=== PATIENT | male | born 1995 | race Caucasian/White ===

== ENCOUNTER 2024-08-09 18:22 | Emergency (ER) | payer BC, SELFPAY ==
[2024-08-09] VITALS (14 sets, daily range): BP systolic 109–122; BP diastolic 60–82; PULSE 77–90; TEMP 36.7; O2SAT 95–99; BMI 28.4
--- NOTE | 2024-08-09 18:36 | ECG_ITS ---
The [facility] Test Date: 2024-08-09 Pat Name: GUS LOVE Department: Room: - Gender: Male Hostess Host: : 1995 Requested By: [id number] Order Number: [id number] Reading MD: SIMONE DESAI Measurements Intervals [place] Rate: 77 P: 44 MT: 146 QRS: -4 QRSD: 94 T: 13 QT: 358 QTc: 389 Interpretive Statements 1100 Sinus rhythm 9110 normal ECG Compared to ECG 10/20/2020 17:15:01 No significant changes Electronically Signed On 08-11-2024 7:40:55 EST by SIMONE DESAI
--- NOTE | 2024-08-09 19:05 | XR_ITS ---
[address] [address] Patient Name: GUS LOVE MRN: [id number] date: 1995 Sex: M Assigned Patient Location: ER Current Patient Location: ED.MAIN Accession/Order Number: [id number] Exam Date: 08/09/2024 19:20 Report Date: 08/09/2024 20:14 At the request of: KELLY GHOSH Procedure: XR chest 1V Exam: Radiographs: XR chest 1V Reason for exam: Chest pain Comparison: Chest x-ray dated 10/20/2020 XR/XR chest 1V IMPRESSION: Unremarkable chest x-ray. Electronically authenticated by: MEGHA WALTON Date: 08/09/2024 20:14
--- NOTE | 2024-08-09 19:07 | ED_ITS ---
HPI - Chest Pain General Chief Complaint: Chest Pain Stated Complaint: CHEST PAIN Time Seen by Provider: 08/09/24 18:26 Source: patient Mode of arrival: walk-in Limitations: no limitations History of Present Illness HPI narrative: Patient is a 28-year-old male who presents to the emergency department for a 1 week history of pain in the epigastrium and across the anterior chest. He states he was diagnosed with GERD, he had previous endoscopy for this and was told he had an inverted hernia in his stomach. He states he was placed on Pepcid. He stopped that medication about 6 months ago. He states in the last 2 weeks he has had some return of symptoms and in the last several days it has gotten much worse. He has not had any nausea or vomiting. He denies fevers, chills, upper respiratory symptoms. No difficulty breathing. He came to the emergency department because he states he was concerned about having pain in his chest. He did resume his Pepcid over the last several days and states he has had some improvement with the medication. Related Data Previous Rx's ?Medication ?Instructions ?Recorded ondansetron 4 mg disintegrating 4 mg PO Q6H PRN nausea and 08/09/24 tablet vomiting #12 tabs sucralfate 1 gram tablet (Carafate) 1 g PO Q6H PRN abdominal pain #12 08/09/24 tabs Allergies Allergy/AdvReac Type Severity Reaction Status Date / Time No Known Drug Allergies Allergy Verified 08/09/24 18:31 Review of Systems ROS Constitutional Denies: fever or chills Ears, nose, mouth, and throat Denies: throat pain or nasal congestion Cardiovascular Reports: chest pain Respiratory Denies: shortness of breath or cough Gastrointestinal Reports: abdominal pain; Denies: nausea, vomiting or diarrhea Musculoskeletal Denies: back pain Integumentary/Breast Denies: rash Neurological Denies: numbness in extremities or weakness in extremities Hematologic/Lymphatic Denies: easy bruising or easy bleeding PFSH PFSH Social History Little interest or pleasure in doing things: not at all Feeling down, depressed, or hopeless: not at all Exam Narrative Exam Narrative: Gen.: Awake, alert, in no distress Head: Normocephalic, atraumatic ENT: Moist mucous membranes Respiratory: No respiratory distress, lungs clear bilaterally Cardio: Regular rate and rhythm Gastrointestinal: Abdomen is soft, nondistended and nontender to palpation Extremities: Moves extremities equally Psych: Normal mood and affect Neuro: No focal neuro deficit Skin: Warm, dry, intact Constitutional Vital Signs, click to edit/add: Last Vital Signs Temp 98.0 F 08/09/24 18:31 Pulse 83 08/09/24 19:10 Resp 16 08/09/24 19:15 BP 109/60 08/09/24 18:33 Pulse Ox 96 08/09/24 19:10 O2 Del Method Room Air 08/09/24 18:31 Course Vital Signs Vital signs: Vital Signs Temperature 98.0 F 08/09/24 18:31 Pulse Rate 85 08/09/24 18:31 Respiratory Rate 18 08/09/24 18:31 Blood Pressure 109/60 08/09/24 18:31 Pulse Oximetry 96 08/09/24 18:31 Oxygen Delivery Method Room Air 08/09/24 18:31 Temperature 98.0 F 08/09/24 18:31 Pulse Rate 83 08/09/24 19:10 Respiratory Rate 16 08/09/24 19:15 Blood Pressure 109/60 08/09/24 18:33 Pulse Oximetry 96 08/09/24 19:10 Oxygen Delivery Method Room Air 08/09/24 18:31 MDM - Chest Pain MDM Narrative Medical decision making narrative: Patient medicated with a GI cocktail, symptoms are consistent with esophagitis/gastritis. EKG, lab studies are unremarkable. AST and ALT are minimally elevated although bilirubin is normal and the patient has no focal tenderness to the right upper quadrant. Abdomen is soft and benign. Reevaluated by attending physician prior to discharge. He has Pepcid at home and will be given Carafate, Zofran as needed. Follow-up with PCP and return to the ER if symptoms change or worsen SHARED APC VISIT, PHYSICIAN ATTESTATION: [id number] I performed a substantive part of the MDM during the patient?s E/M visit. I personally evaluated and examined the patient. I personally made or approved the documented management plan and acknowledge its risk of complications. . Medical Records Data Attestation: I reviewed the patient's medical records. Lab Data Attestation: I reviewed the patient's lab results. Labs: Lab Results 08/09/24 Range/Units 18:45 WBC 7.3 (4.0-11.0) 10^3/uL RBC 5.39 (4.70-6.10) 10^6/uL Hgb 15.4 (14.0-18.0) g/dL Hct 46.2 (42.0-54.0) % MCV 85.7 (80.0-94.0) fL MCH 28.6 (25.9-34.0) pg MCHC 33.3 (29.9-35.2) g/dL RDW 12.4 (11.0-15.0) % Plt Count 237 (150-450) 10^3/uL MPV 10.7 (9.5-13.5) fL Neut % (Auto) 58.4 (43.0-75.0) % Lymph % (Auto) 31.9 (20.5-60.0) % [place] % (Auto) 7.9 (1.7-12.0) % Eos % (Auto) 1.0 (0.9-7.0) % Baso % (Auto) 0.5 (0.2-2.0) % Neut # (Auto) 4.3 (1.4-6.5) 10^3/uL Lymph # (Auto) 2.3 (1.2-3.8) 10^3/uL [place] # (Auto) 0.6 (0.3-0.8) 10^3/uL Eos # (Auto) 0.1 (0.0-0.7) 10^3/uL Baso # (Auto) 0.0 (0.0-0.1) 10^3/uL Abs Immat Gran (auto) 0.02 (0.00-0.03) 10^3/uL Imm/Tot Granulo (auto) 0.3 (0.0-0.5) % PT 10.5 (9.0-11.6) sec INR 0.99 Sodium 139 (136-145) mmol/L Potassium 3.7 (3.5-5.1) mmol/L Chloride 104 (98-107) mmol/L Carbon Dioxide 26.2 (21.0-32.0) mmol/L Anion Gap 12.5 BUN 15.0 (7.0-18.0) mg/dL Creatinine 1.48 H (0.70-1.30) mg/dL Est GFR ( Amer) >60 (>=60 mL/min/1.73m^2) Est GFR (Non-Af Amer) 57 L (>=60 mL/min/1.73m^2) BUN/Creatinine Ratio 10.1 Glucose 96 (74-106) mg/dL Calcium 8.8 (8.5-10.1) mg/dL Total Bilirubin 0.7 (0.2-1.0) mg/dL AST 43 H (15-37) U/L ALT 111 H (16-63) U/L Alkaline Phosphatase 82 (46-116) U/L Troponin I High Sens <4.0 L (4.0-76.1) pg/mL NT-Pro-B Natriuret Pep 6.0 (<=450.0) pg/mL Total Protein 6.8 (6.4-8.2) g/dL Albumin 3.8 (3.4-5.0) g/dL Globulin 3.0 g/dL Albumin/Globulin Ratio 1.3 Lipase 55.0 (16.0-77.0) U/L Imaging Data Chest x-ray: Attestation: I have reviewed the pertinent imaging results. ECG Data Attestation: I personally reviewed and interpreted this ECG as follows: (Normal sinus rhythm at a rate of 77, no acute ST elevation or ectopy. EKG reviewed by attending physician) Discharge Plan Discharge Chief Complaint: Chest Pain Clinical Impression: Chest pain, Esophagitis, acute Patient Disposition: Home, Self-Care Time of Disposition Decision: 19:57 Condition: Good Prescriptions / Home Meds: New sucralfate [Carafate] 1 gram tablet 1 g PO Q6H PRN (Reason: abdominal pain) Qty: 12 0RF ondansetron 4 mg tablet,disintegrating 4 mg PO Q6H PRN (Reason: nausea and vomiting) Qty: 12 0RF Print Language: Swedish Instructions: Noncardiac Chest Pain (ED), Esophagitis (ED) Referrals: Physician,Non-Staff, [Physician] - 1 week
[2024-08-09 19:13] LABS: Basophils Percent Auto 0.5 % (0.2-2.0); Eosinophils Absolute Auto 0.1 10^3/uL (0.0-0.7); Hematocrit 46.2 % (42.0-54.0); Hemoglobin 15.4 g/dL (14.0-18.0); Immature Granulocytes Abs Auto 0.02 10^3/uL (0.00-0.03); Immature Granulocytes Pct Auto 0.3 % (0.0-0.5); Lymphocytes Absolute Auto 2.3 10^3/uL (1.2-3.8); Lymphocytes Percent Auto 31.9 % (20.5-60.0); Mean Corpuscular HGB Conc 33.3 g/dL (29.9-35.2); Mean Corpuscular Hemoglobin 28.6 pg (25.9-34.0); Mean Corpuscular Volume 85.7 fL (80.0-94.0); Mean Platelet Volume 10.7 fL (9.5-13.5); Monocytes Absolute Auto 0.6 10^3/uL (0.3-0.8); Monocytes Percent Auto 7.9 % (1.7-12.0); Neutrophils Absolute Auto 4.3 10^3/uL (1.4-6.5); Neutrophils Percent Auto 58.4 % (43.0-75.0); Platelet Count 237 10^3/uL (150-450); Red Blood Count 5.39 10^6/uL (4.70-6.10); Red Cell Distribution Width 12.4 % (11.0-15.0); White Blood Count 7.3 10^3/uL (4.0-11.0)
[2024-08-09 19:19] LABS: INR 0.99; Prothrombin Time 10.5 sec (9.0-11.6)
[2024-08-09 19:26] LABS: Alanine Aminotransferase 111 U/L (16-63); Albumin Globulin Ratio 1.3; Albumin Level 3.8 g/dL (3.4-5.0); Alkaline Phosphatase 82 U/L (46-116); Anion Gap 12.5; Aspartate Amino Transferase 43 U/L (15-37); Bilirubin Total 0.7 mg/dL (0.2-1.0); Carbon Dioxide 26.2 mmol/L (21.0-32.0); Chloride 104 mmol/L (98-107); Estimated GFR (African America >60 (>=60 mL/min/1.73m^2); Glucose 96 mg/dL (74-106); Potassium 3.7 mmol/L (3.5-5.1); Sodium 139 mmol/L (136-145); Total Protein 6.8 g/dL (6.4-8.2)
[2024-08-09] MEDS: lidocaine HCL 15 ML, MAG HYDROX/ALUMINUM HYD/SIMETH 30 ML, HYOSCYAMINE SULFATE 0.25 MG PO (19:31)
[2024-08-09 19:33] LABS: Troponin I High Sensitivity <4.0 pg/mL (4.0-76.1)
[2024-08-09 19:48] LABS: Calcium 8.8 mg/dL (8.5-10.1)
[2024-08-09 19:51] LABS: BUN Creatinine Ratio 10.1; Estimated GFR (Non-African Ame 57 (>=60 mL/min/1.73m^2)
== END 2024-08-09 20:22 | disposition home or self-care (01) ==
PROVIDERS: Physician Assistant; Emergency Provider Emergency Medicine; PCP Nurse Practitioner Family
DX: R07.9 Chest pain, unspecified (principal); K21.00 Gastro-esophageal reflux disease with esophagitis, without bleeding
CPT/HCPCS: 36415; 71045; 80053; 83690; 83880; 84484; 85025; 85610; 93005; 99285

== ENCOUNTER 2025-05-01 16:19 | Emergency (ER) | payer BC, SELFPAY ==
[2025-05-01 16:30] VITALS: BP 144/95; PULSE 87; TEMP 37; O2SAT 99; BMI 33.9
--- OUTSIDE RECORDS SUMMARY | 2025-05-01 17:02 | XMS_ITS | CCD ---
Author Organization [facility] CliniSypr Care Team Providers Care Pomology Teacher Name Role Phone Bere Majano Unavailable Blessing APPRENTICE/LINEMAN - Estelle SALES Primary Care Provider ESTELLE FUNK Referring Unavailable ESTELLE FUNK Primary Care Unavailable ESTELLE FUNK M Referring Unavailable ESTELLE FUNK M Primary Care Unavailable Cristin Adame Unavailable ELISEO, DR MILLER Admitting Unavailable ELISEO, DR MILLER Attending Unavailable [facility], DR BRANDT Primary Care Unavailable ELISEO, DR MILLER Consulting Unavailable NO FAMILY, PHYSICIAN Primary Care Provider Unava ilable MARISOL Garcia Attending Provider Fabiana Garcia Attending Unavailable Fabiana Garcia Admitting Unavailable NO FAMILY, PHYSICIAN Primary Care Unavailable Xiomara APPRENTICE/LINEMAN-MÓNICA, Olaf Cote Primary Care Provider CASSIDY ROGERS Referring Unavailable XIOMARA, OLAF L Primary Care Unavailable XIOMARA, OLAF L Referring Unavailable XIOMARA, OLAF L Primary Care Unavailable XIOMARA, OLAF L Primary Care Unavailable XIOMARA, OLAF L Referring Unavailable XIOMARA, OLAF L Primary Care Unavailable Blessing APPRENTICE/LINEMAN - Estelle SALES Primary Care Provider CANELO ALVARADO Referring Unavailable ESTELLE FUNK Primary Care Unavailable Xiomara APPRENTICE/LINEMAN-ASSISTANT PROFESSOR OF COMMUNICATIONOlaf Primary Care Provider XIOMARA, OLAF L Attending Unavailable XIOMARA, OLAF L Referring Unavailable XIOMARA, OLAF L Primary Care Unavailable XIOMARA, OLAF L Attending Unavailable XIOMARA, OLAF L Referring Unavailable XIOMARA, OLAF L Primary Care Unavailable XIOMARA, OLAF L Attending Unavailable XIOMARA, OLAF L Referring Unavailable XIOMARA, OLAF L Primary Care Unavailable Medications Current Medications Medication Drug Class(es) Dates Sig (Normalized) Sig (Original) dextromethorphan hydrobromide 1.5 mg/ml / pyrilamine maleate 1.5 mg/ml oral solution (1 source) Uncompetitive I-ocgkqs-B-asparta te Receptor Antagonist, Sigma-1 Agonist Start: 10-25-2021 [place] DM 7.5-7.5 MG/5ML 10 ml Orally every 6-8 hours as needed for 8 days Oct, Active famotidine 20 mg oral tablet (5 sources) Histamine-2 Receptor Antagonist Start: 07-21-2023 End: 09-27-2024 take 1 tablet by mouth in the morning, then take 1 tablet by mouth at bedtime famotidine (PEPCID) 20 mg tablet Take 1 tablet (20 mg total) by mouth in the morning and 1 tablet (20 mg total) before bedtime. 60 tablet 1 07/21/2023 09/27/2024 Discontinued (Therapy completed) nicotine 4 mg chewing gum (2 sources) Cholinergic Nicotinic Agonist Start: 10-21-2024 nicotine polacrilex (NICORETTE) 4 MG gum Chew 1 each (4 mg total) as directed as needed for smoking cessation. 100 each 1 10/21/2024 Active omeprazole 20 mg delayed release oral capsule (7 sources) Proton Pump Inhibitor Start: 08-16-2024 End: 09-10-2024 take 2 capsules by mouth in the morning omeprazole (PriLOSEC) 20 mg capsule TAKE 2 CAPSULES (40 MG) BY MOUTH IN THE MORNING 180 capsule 1 09/10/2024 Active ondansetron 4 mg disintegrating oral tablet (4 sources) Serotonin-3 Receptor Antagonist Start: 08-09-2024 ondansetron ODT (ZOFRAN ODT) 4 mg disintegrating tablet 08/09/2024 Active Start: 07-20-2022 take 1 tablet by kamran th three times daily as needed for nausea Zofran 4 MG 1 tablet Orally 3 times a day prn prn nausea Jul, Active sucralfate 1000 mg oral tablet (3 sources) Aluminum Complex Start: 08-09-2024 End: 09-27-2024 sucralfate (CARAFATE) 1 gram tablet 08/09/2024 09/27/2024 Discontinued (Therapy completed) Completed/Discontinued Medications Medication Drug Class(es) Dates Sig (Normalized) Sig (Original) gadoteridol (PROHANCE) injection 20 mL (1 source) Start: 10-08-2024 End: 10-08-2024 take 1 dose intravenously once 20 mL, IntraVENous, IMG ONCE PRN, 1 dose, Starting on Mon10/08/24 at 0950, Until Mon10/08/24 at 0951, Other Problems Active Problems Problem Classification Problem Date Documented Date Episodic/Chronic Biliary tract disease (2 sources) Cholangiectasis; Translations: [Other specified diseases of biliary tract] Onset: 10-08-2024 10-08-2024 Chronic Blindness and vision defects (3 sources) Other visual disturbances; Translations: [OTHER VISUAL DISTURBANCES] Onset: 08-13-2022 Episodic Esophageal disorders (13 sources) Gastroesophageal reflux disease; Translations: [Gastro-esophageal reflux disease without esophagitis] Onset: 05-26-2023 08-16-2024 Chronic Fracture of lower limb (1 source) Nondisplaced avulsion fracture (chip fracture) of right talus, initial encounter for closed fracture; Translations: [Nondisplaced avulsion fracture (chip fracture) of right talus, initial encounter for closed fracture] Onset: 08-25-2024 Episodic Headache; including migraine (1 source) Migraine, unspecified, not intractable, without status migrainosus; Translations: [MIGRAINE UNS NOT INTRACT W/O SM] Onset: 08-16-2022 Chronic Immunizations and screening for infectious disease (1 source) Contact with and (suspected) exposure to other viral communicable diseases Episodic Nausea and vomiting (1 source) Nausea with vomiting, unspecified Episodic Other connective tissue disease (1 source) Hand pain; Translations: [Pain in left hand] 01-15-2024 Episodic Other connective tissue disease (1 source) Pain in left hand; Translations: [Pain in limb] 01-15-2024 Episodic Other injuries and conditions due to external causes (2 sources) Injury of left hand; Translations: [Unspecified injury of left wrist, hand and finger(s), initial encounter] 01-15-2024 Episodic Other injuries and conditions due to external causes (1 source) Unspecified injury of left wrist, hand and finger(s), initial encounter; Translations: [Unspecified injury of left wrist, hand and finger(s), initial encounter] Onset: 01-15-2024 Episodic Other non-traumatic joint disorders (4 sources) Pain in left knee; Translations: [Pain in joint, lower leg] Onset: 05-03-2022 Episodic Other nutritional; endocrine; and metabolic disorders (2 sources) Obesity caused by energy imbalance; Translations: [Class 1 obesity due to excess calories without serious comorbidity with body mass index (BMI) of 33.0 to 33.9 in adult] 09-27-2024 Chronic Other upper respiratory disease (1 source) Feeling of lump in throat; Translations: [Globus sensation] 09-27-2024 Episodic Residual codes; unclassified (1 source) Pain, unspecified; Translations: [Pain, unspecified] Onset: 08-21-2024 Episodic Sprains and strains (4 sources) Sprain of medial collateral ligament of knee; Translations: [Sprain of medial collateral ligament of left knee, initial encounter] Onset: 05-03-2022 Episodic Substance-related disorders (11 sources) Nicotine dependence; Translations: [Nicotine dependence, chewing tobacco, uncomplicated] Onset: 05-26-2023 05-26-2023 Chronic Unclassified (1 source) Ankle Injury Onset: 08-25-2024 Unclassified (1 source) Right Ankle Injury Onset: 08-25-2024 Unclassified (1 source) Foreign body sensation, throat; Translations: [Foreign body sensation, throat] Onset: 09-27-2024 Unclassified (1 source) Wellness Onset: 04-25-2025 Unclassified (1 source) GI Problem Onset: 08-16-2024 Past or Other Problems Problem Classification Problem Date Documented Da te Episodic/Chronic Abdominal hernia (11 sources) Sliding hiatus hernia ; Translations: [Diaphragmatic hernia without obstruction or gangrene] Onset: 07-21-2023 07-21-2023 Episodic Fever of unknown origin (1 source) Fever, unspecified Onset: 10-25-2021 Resolved: 10-25-2021 Episodic Influenza (1 source) Influenza due to other identified influenza virus with other respiratory manifestations Onset: 10-25-2021 Resolved: 10-25-2021 Episodic Mood disorders (8 sources) Mood disorders Onset: 09-29-2023 Resolved: 04-25-2025 09-29-2023 Other gastrointestinal disorders (8 sources) Oropharyngeal dysphagia; Translations: [Dysphagia, oropharyngeal phase] Onset: 06-25-2023 07-21-2023 Episodic Other screening for suspected conditions (not mental disorders or infectious disease) (9 sources) Abnormal liver function; Translations: [Abnormal results of liver function studies] Onset: 08-16-2024 08-16-2024 Episodic Other skin disorders (1 source) Skin tag; Translations: [Other hypertrophic disorders of the skin] 09-29-2023 Episodic Unclassified (1 source) Onset: 04-25-2025 04-25-2025 Results Test Name Value Interpretation Reference Range Facility [facility] 04-25-2025 Albumin [Mass/Vol] 4.5 g/dL Normal 3.2-5.3 [facility] Comment on above: Performed By: #### C MP #### [facility] ([facility]) [address] [place] [address] VIR ALP [Catalytic activity/Vol] 59 U/L Normal 39-130 [facility] Comment on above: Performed By: #### C MP #### [facility] ([facility]) [address] [place] [address] VIR ALT [Catalytic activity/Vol] 58 U/L High <=40 [facility] Comment on above: Performed By: #### C MP #### [facility] ([facility]) [address] [place] [address] VIR Anion gap [Moles/Vol] 10 mmol/L Normal 5-15 [facility] Comment on above: Performed By: #### C MP #### [facility] ([facility]) [address] [place] [address] VIR AST [Catalytic activity/Vol] 35 U/L Normal <=41 [facility] Comment on above: Performed By: #### C MP #### [facility] ([facility]) [address] [place] [address] VIR Bilirubin [Mass/Vol] 0.7 mg/dL Normal 0.3-1.2 [facility] Comment on above: Performed By: #### C MP #### [facility] ([facility]) [address] [place] [address] VIR Calcium [Mass/Vol] 9.0 mg/dL Normal 8.5-10.5 [facility] Comment on above: Performed By: #### C MP #### [facility] ([facility]) [address] [place] [address] VIR Chloride [Moles/Vol] 104 mmol/L Normal 98-109 [facility] Comment on above: Performed By: #### C MP #### [facility] ([facility]) [address] [place] [address] VIR CO2 [Moles/Vol] 24 mmol/L Normal 22-32 [facility] Comment on above: Performed By: #### C MP #### [facility] ([facility]) [address] [place] [address] VIR Creatinine [Mass/Vol] 1.06 mg/dL Normal 0.60-1.30 [facility] Comment on above: Result Comment: METH OD TRACEABLE TO IDMS STANDARD Performed By: #### C MP #### [facility] ([facility]) [address] [place] [address] VIR EGFR (CKD-EPI) NON-RACE DEPENDENT >^90 Normal >=60 [facility] Comment on above: Result Comment: Repo rted eGFR is based on the CKD-EPI 2020 equation that does not use a race coefficient. Performed By: #### C MP #### [facility] ([facility]) [address] [place] [address] VIR Glucose [Mass/Vol] 89 mg/dL Normal 65-99 [facility] Comment on above: Performed By: #### C MP #### [facility] ([facility]) [address] [place] [address] VIR Potassium [Moles/Vol] 4.2 mmol/L Normal 3.5-5.0 [facility] Comment on above: Performed By: #### C MP #### [facility] ([facility]) [address] [place] [address] VIR Protein [Mass/Vol] 6.8 g/dL Normal 6.0-8.0 [facility] Comment on above: Performed By: #### C MP #### [facility] ([facility]) [address] [place] [address] VIR Sodium [Moles/Vol] 138 mmol/L Normal 134-146 [facility] Comment on above: Performed By: #### C MP #### [facility] ([facility]) [address] [place] [address] VIR Urea nitrogen [Mass/Vol] 13 mg/dL Normal 5-23 [facility] Comment on above: Performed By: #### C MP #### [facility] ([facility]) [address] [place] [address] VIR LIPID PROFILEon 04-25-2025 Cholesterol [Mass/Vol] 149 mg/dL Low 150-200 [facility] Comment on above: Performed By: #### L IPR #### [facility] ([facility]) [address] [place] [address] VIR Cholesterol in HDL [Mass/Vol] 38 mg/dL Low >39 [facility] Comment on above: Result Comment: HDL <40 mg/dL - High Risk HDL > or = 40mg/dL- Desirable HDL >60 mg/dL - Negative Risk Performed By: #### L IPR #### [facility] ([facility]) [address] [place] [address] VIR Cholesterol in LDL [Mass/Vol] 91 mg/dL Normal <130 [facility] Comment on above: Result Comment: LDL <100 mg/dL - Desirable LDL >160 mg/dL - High Risk Performed By: #### L IPR #### [facility] ([facility]) [address] [place] [address] VIR CHOLESTEROL:HDL 3.9 Normal 1.0-5.0 [facility] Comment on above: Performed By: #### L IPR #### [facility] ([facility]) [address] [place] [address] VIR Triglyceride [Mass/Vol] 98 mg/dL Normal 27-150 [facility] Comment on above: Performed By: #### L IPR #### [facility] ([facility]) [address] [place] [address] VIR VERY LOW LIPOPROTEIN 20 mg/dL Normal 0-30 [facility] Comment on above: Performed By: #### L IPR #### [facility] ([facility]) [address] [place] [address] VIR MR Abdomen WO and W contrast Klarissa 10-08-2024 Unremarkable MRI/MRCP. [facility] EXAMINATION: MRI OF THE ABDOMEN WITH AND WITHOUT CONTRAST AND MRCP 10/08/2024 9:51 am TECHNIQUE: Multiplanar multisequence MRI of the abdomen was performed with and without the administration of intravenous contrast. After initial T2 axial and coronal images, thick slab, thin slab and 3D coronal MRCP sequences were obtained without the administration of intravenous contrast. MIP images are provided for review. COMPARISON: None HISTORY: ORDERING SYSTEM PROVIDED HISTORY: Dilation of common bile duct TECHNOLOGIST PROVIDED HISTORY: STAT Creatinine as needed:->No FINDINGS: LOWER CHEST: The visualized lung bases reveal no signal abnormality. LIVER: The liver is normal in morphology. No evidence for steatosis. No suspicious liver lesion identified. The hepatic veins and portal veins are appropriately opacified. GALLBLADDER/BILE DUCTS: Normal gallbladder. No intrahepatic nor extrahepatic biliary dilation. PANCREAS: No significant findings. SPLEEN: No significant findings. ADRENAL GLANDS: Normal. KIDNEYS: No significant findings. GI/BOWEL: The visualized bowel is normal in caliber. PERITONEUM/RETROPERI TONEUM: No abdominal lymphadenopathy. No free intraperitoneal fluid. VESSELS: The aorta is normal in caliber. The visceral branches are patent. The IVC is appropriately opacified. SOFT TISSUES/BONES: No suspicious signal abnormality identified. *Unless otherwise specified, incidental findings do not require dedicated imaging follow-up. [facility] Arnaud Reyes MD - 10/08/2024 EXAMINATION: MRI OF THE ABDOMEN WITH AND WITHOUT CONTRAST AND MRCP 10/08/2024 9:51 am TECHNIQUE: Multiplanar multisequence MRI of the abdomen was performed with and without the administration of intravenous contrast. After initial T2 axial and coronal images, thick slab, thin slab and 3D coronal MRCP sequences were obtained without the administration of intravenous contrast. MIP images are provided for review. COMPARISON: None HISTORY: ORDERING SYSTEM PROVIDED HISTORY: Dilation of common bile duct TECHNOLOGIST PROVIDED HISTORY: STAT Creatinine as needed:->No FINDINGS: LOWER CHEST: The visualized lung bases reveal no signal abnormality. LIVER: The liver is normal in morphology. No evidence for steatosis. No suspicious liver lesion identified. The hepatic veins and portal veins are appropriately opacified. GALLBLADDER/BILE DUCTS: Normal gallbladder. No intrahepatic nor extrahepatic biliary dilation. PANCREAS: No significant findings. SPLEEN: No significant findings. ADRENAL GLANDS: Normal. KIDNEYS: No significant findings. GI/BOWEL: The visualized bowel is normal in caliber. PERITONEUM/RETROPERI TONEUM: No abdominal lymphadenopathy. No free intraperitoneal fluid. VESSELS: The aorta is normal in caliber. The visceral branches are patent. The IVC is appropriately opacified. SOFT TISSUES/BONES: No suspicious signal abnormality identified. *Unless otherwise specified, incidental findings do not require dedicated imaging follow-up. IMPRESSION: Unremarkable MRI/MRCP. [facility] Radiology Study observation (narrative) [facility] MR Abdomen WO and W contrast IVOrdered By: Arnaud Reyes on 10-08-2024 [facility] Loc[facility]er Work Phone: MRI ABDOMEN W WO CONTRAST MR CPon 10-08-2024 MRI ABDOMEN W WO CONTRAST MRCP EXAMINATION: MRI OF THE ABDOMEN WITH AND WITHOUT CONTRAST AND MRCP 10/08/2024 9:51 am TECHNIQUE: Multiplanar multisequence MRI of the abdomen was performed with and without the administration of intravenous contrast. After initial T2 axial and coronal images, thick slab, thin slab and 3D coronal MRCP sequences were obtained without the administration of intravenous contrast. MIP images are provided for review. COMPARISON: None HISTORY: ORDERING SYSTEM PROVIDED HISTORY: Dilation of common bile duct TECHNOLOGIST PROVIDED HISTORY: STAT Creatinine as needed:->No FINDINGS: LOWER CHEST: The visualized lung bases reveal no signal abnormality. LIVER: The liver is normal in morphology. No evidence for steatosis. No suspicious liver lesion identified. The hepatic veins and portal veins are appropriately opacified. GALLBLADDER/BILE DUCTS: Normal gallbladder. No intrahepatic nor extrahepatic biliary dilation. PANCREAS: No significant findings. SPLEEN: No significant findings. ADRENAL GLANDS: Normal. KIDNEYS: No significant findings. GI/BOWEL: The visualized bowel is normal in caliber. PERITONEUM/RETROPERI TONEUM: No abdominal lymphadenopathy. No free intraperitoneal fluid. VESSELS: The aorta is normal in caliber. The visceral branches are patent. The IVC is appropriately opacified. SOFT TISSUES/BONES: No suspicious signal abnormality identified. *Unless otherwise specified, incidental findings do not require dedicated imaging follow-up. IMPRESSION: Unremarkable MRI/MRCP. Interpreted by: Arnaud Reyes MD Signed by: Aranud Reyes MD 10/08/24 Final result Normal [facility] Jaron 09-27-2024 Albumin [Mass/Vol] 4.6 g/dL Normal 3.2-5.3 [facility] Comment on above: Performed By: #### C GRECIA TSHR #### [facility] ([id number]) [address] [place] [address] ALP [Catalytic activity/Vol] 94 U/L Normal 39-130 [place] Comment on above: Performed By: #### Phil PAIGE TSHR #### [facility] ([id number]) [address], [address] [place] [address] ALT [Catalytic activity/Vol] 97 U/L High 0-40 [place] Comment on above: Performed By: #### Phil PAIGE TSHR #### [facility] ([id number]) [address], [address] [place] [address] Anion gap [Moles/Vol] 7 mmol/L Normal 5-15 [place] Comment on above: Performed By: #### C GRECIA TSHR #### [facility] ([id number]) [address] [place] [address] AST [Catalytic activity/Vol] 40 U/L Normal 0-41 [place] Comment on above: Performed By: #### Phil PAIGE TSHR #### [facility] ([id number]) [address], [address] [place] [address] Bilirubin [Mass/Vol] 0.4 mg/dL Normal 0.3-1.2 [place] Comment on above: Performed By: #### C GRECIA, TSHR #### [facility] ([id number]) [address] [address] [place] [address] Calcium [Mass/Vol] 9.5 mg/dL Normal 8.5-10.5 [facility] Comment on above: Performed By: #### C GRECIA TSHR #### [facility] ([id number]) [address] [address] [place] [address] Chloride [Moles/Vol] 108 mmol/L Normal 98-109 [place] Comment on above: Performed By: #### C GRECIA TSHR #### [facility] ([id number]) [address] [address] [place] [address] CO2 [Moles/Vol] 26 mmol/L Normal 22-32 [place] Comment on above: Performed By: #### C GRECIA TSHR #### [facility] ([id number]) [address] [address] [place] [address] Creatinine [Mass/Vol] 1.18 mg/dL Normal 0.60-1.30 [place] Comment on above: Result Comment: METH OD TRACEABLE TO IDMS STANDARD Performed By: #### C GRECIA, TSHR #### [facility] ([id number]) [address] [address] [place] [address] GFR/1.73 sq M.predicted among non-blacks MDRD (S/P/Bld) [Vol rate/Area] 87 mL/min/{1.73_m2} Normal >59 [facility] Comment on above: Result Comment: Reported eGFR is based on the CKD-EPI 2020 equation that does not use a race coefficient. Performed By: #### C MP, TSHR #### [facility] ([id number]) [address] [place] [address] Glucose [Mass/Vol] 98 mg/dL Normal 65-99 [facility] Comment on above: Performed By: #### C GRECIA TSHR #### [facility] ([id number]) [address] [place] [address] Potassium [Moles/Vol] 4.6 mmol/L Normal 3.5-5.0 [place] Comment on above: Performed By: #### C GRECIA TSHR #### [facility] ([id number]) [address] [place] [address] Protein [Mass/Vol] 6.6 g/dL Normal 6.0-8.0 [facility] Comment on above: Performed By: #### Phil PAIGE TSHR #### [facility] ([id number]) [address] [place] [address] Sodium [Moles/Vol] 141 mmol/L Normal 134-146 [facility] Comment on above: Performed By: #### C GRECIA TSHR #### [facility] ([id number]) [address] [place] [address] Urea nitrogen [Mass/Vol] 12 mg/dL Normal 5-23 [place] Comment on above: Performed By: #### Phil PAIGE TSHR #### [facility] ([id number]) [address] [place] [address] TSH WITH REFLEXon 09-27-2024 TSH 1.02 uIU/mL Normal 0.49-4.67 [facility] Comment on above: Performed By: #### Phil PAIGE TSHR #### [facility] ([id number]) [address] [place] [address] US ABDOMEN LMTDon 08-23-2024 US ABDOMEN LMTD US ABDOMEN LMTD US ABDOMEN LMTD HISTORY: Abnormal liver function test COMPARISON: None TECHNIQUE: Multiple real-time grayscale images were obtained in transverse and sagittal projections. Color Doppler was used. FINDINGS: Visualized portions of liver are homogenous in echotexture without demonstrated focal lesion. No intrahepatic biliary dilatation. The common bile duct is mildly prominent measuring 0.7 cm. Main portal vein is patent with appropriate direction of flow. No gallstones, gallbladder wall thickening, or pericholecystic fluid demonstrated. Technologist reports negative sonographic Rod's sign. Pancreas difficult to visualize secondary to overlying bowel gas. Provided images of the right kidney show no abnormalities. IMPRESSION: 1. Mildly prominent common bile duct measuring 7 mm. Consider correlation with labs, if abnormal ERCP, EUS or MRCP may be considered. 2. No acute cholecystitis. Approved by Pranay Rouse MD on 08/23/2024 8:00 AM I, Anupama Cantu MD have personally reviewed the image(s) and agree with and/or edited the report Finalized by Anupama Cantu MD on 08/23/2024 2:40 PM Normal [facility] XR ANKLE RT MIN 3 VWSon XR ANKLE RT MIN 3 VWS XR ANKLE RT MIN 3 VWS History: Pain. Exam/Technique: AP, lateral and oblique views of the ankle were obtained. Comparison: None is available. Findings: There is moderate soft tissue swelling at the lateral malleolus and posterior aspect of the ankle joint with no gross acute osseous injury or displaced fracture. There is no dislocation or subluxation are present. Ankle mortise is well preserved. IMPRESSION: Prominent soft tissue swelling with no displaced fracture or gross acute osseous injury. Finalized by Violeta Lombardo MD on 08/21/2024 1:38 PM Normal [facility] XR FOOT RT MIN 3 VWSon 08-21 XR FOOT RT MIN 3 VWS XR FOOT RT MIN 3 VWS XR FOOT RT MIN 3 VWS HISTORY: Pain. COMPARISON: none IMPRESSION: Probable tiny avulsion fracture about the lateral talar facet versus lateral margin of the calcaneus. Soft tissue swelling about the lateral malleolus. Ankle radiographs dictated separately. Finalized by Alex Jimenez MD on 08/21/2024 1:39 PM Normal [facility] XR hand LT min 3V*on 024 XR hand LT min 3V* [facility] [place] [address] [place] [id number] XRay Report Signed Patient: Abrahan Lozano MR#: [id number] : 1995 Acct:[id number] Age/Sex: 28 / M ADM Date: 01/15/24 Loc: XDUCLY Room: Type: [facility] Attending Dr: Fabiana Garcia APPRENTICE/LINEMAN Copies to: Fabiana Garcia APRN Ordering Provider: Fabiana Garcia APRN Date of Service: 01/15/24 XR/XR hand LT min 3V*: LEFT HAND POSSIBLE FOREIGN BODY 4 views LEFT hand plain film COMPARISON: None HISTORY: LEFT hand injury. Concern for retained metal. ACUTE FINDINGS: None DEGENERATIVE CHANGE: Unremarkable SOFT TISSUE FINDINGS: No radiodense foreign body. No subcutaneous air. JOINT EFFUSION: None POSTOP CHANGES: None BONY MINERALIZATION: Adequate XR/XR hand LT min 3V* IMPRESSION: No acute bony findings. No radiodense foreign body. Impression dictated by: Samuel Burton M.D.01/15/2024 5:06 PM Dictation Location: [place] [address] Transcribed By: [facility] 01/15/24 170 Dictated By: Samuel Burton DO 01/15/24 170 Signed By: 01/15/24 1706 Normal [facility] Comprehensive metabolic pane jaron 09-29-2023 Albumin [Mass/Vol] 4.4 g/dL 3.2 - 5.3 g/dL Pr [facility] ALP [Catalytic activity/Vol] 63 U/L 39 - 130 U/L [facility] ALT No additional P-5'-P [Catalytic activity/Vol] 54 U/L High 0 - 40 U/L [facility] Anion gap [Moles/Vol] 11 mmol/L 5 - 15 mmol/L [facility] AST [Catalytic activity/Vol] 29 U/L 0 - 41 U/L [facility] Bilirubin [Mass/Vol] 0.5 mg/dL 0.3 - 1.2 mg/dL [facility] Calcium [Mass/Vol] 9.5 mg/dL 8.5 - 10. 5 mg/dL [facility] Chloride [Moles/Vol] 104 mmol/L 98 - 109 mmol/L [facility] CO2 [Moles/Vol] 26 mmol/L 22 - 32 mmol/L [facility] Creatinine [Mass/Vol] 1.10 mg/dL 0.60 - 1.30 mg/dL [facility] Comment on above: METHOD TRACEABLE TO [facility] STANDARD eGFR (CKD-EPI)non-race dependent - PINF [facility] Comment on above: Reported eGFR is based on the CKD-EPI 2020 equation that does not use a race coefficient. Glucose [Mass/Vol] 91 mg/dL 65 - 99 mg/dL [facility] Interpretation and review of laboratory results Abnormal [facility] Potassium [Moles/Vol] 4.2 mmol/L 3.5 - 5.0 mmol/L [facility] Protein [Mass/Vol] 6.9 g/dL 6.0 - 8.0 g/dL Pr [facility] Sodium [Moles/Vol] 141 mmol/L 134 - 146 mmol/L [facility] Urea nitrogen [Mass/Vol] 13 mg/dL 5 - 23 mg/dL [facility] COVID/FLU RT-PCRon 2 SARS-CoV-2 (COVID-19) RNA RUDOLPH+probe Ql (Unsp spec) Negative [facility] Other COVID/FLU RT-PCR Negative [facility] [employer] Other XR KNEE LEFT (3 VIEWS)on XR KNEE LEFT (3 VIEWS) EXAMINATION: THREE XRAY VIEWS OF THE LEFT KNEE 05/03/2022 5:59 pm COMPARISON: None. HISTORY: ORDERING SYSTEM PROVIDED HISTORY: Pain of left knee after injury TECHNOLOGIST PROVIDED HISTORY: left knee sprain 04/24/22 date of injury hit left medial knee almost parellel to patella with metal u channel piece, no break in skin integrity , hard to walk, suspect medial collateral ligament injury rule out avulsion fx. FINDINGS: No evidence of acute fracture or dislocation. No focal osseous lesion. No evidence of joint effusion. No focal soft tissue abnormality. IMPRESSION: No acute abnormality of the knee. Interpreted by: Rafita Johnson DO Signed by: Rafita Johnson DO 05/04/22 Final result Normal [facility] No acute abnormality of the knee. [facility] EXAMINATION: THREE XRAY VIEWS OF THE LEFT KNEE 05/03/2022 5:59 pm COMPARISON: None. HISTORY: ORDERING SYSTEM PROVIDED HISTORY: Pain of left knee after injury TECHNOLOGIST PROVIDED HISTORY: left knee sprain 04/24/22 date of injury hit left medial knee almost parellel to patella with metal u channel piece, no break in skin integrity , hard to walk, suspect medial collateral ligament injury rule out avulsion fx. FINDINGS: No evidence of acute fracture or dislocation. No focal osseous lesion. No evidence of joint effusion. No focal soft tissue abnormality. [facility] Rafita Johnson DO - 05/04/2022 EXAMINATION: THREE XRAY VIEWS OF THE LEFT KNEE 05/03/2022 5:59 pm COMPARISON: None. HISTORY: ORDERING SYSTEM PROVIDED HISTORY: Pain of left knee after injury TECHNOLOGIST PROVIDED HISTORY: left knee sprain 04/24/22 date of injury hit left medial knee almost parellel to patella with metal u channel piece, no break in skin integrity , hard to walk, suspect medial collateral ligament injury rule out avulsion fx. FINDINGS: No evidence of acute fracture or dislocation. No focal osseous lesion. No evidence of joint effusion. No focal soft tissue abnormality. IMPRESSION: No acute abnormality of the knee. [employer] Phone: XR KNEE LEFT (3 VIEWS)Ordere d By: Rafita Johnson on 05-04-2022 [facility] [employer] staff Phone: XR KNEE LEFT (3 VIEWS)on Radiology Study observation (narrative) [employer] Phone: COVID Quick Testingon 2021 Result Negative [facility] Other Provider Orderson 10-11-2019 Provider Orders [id number] #[id number] [facility] Vital Signs Date Time Vital Sign Value Performing Clinician Facility 04-25-2025 08:43-0400 Body height 182.9 cm Olaf Solano APPRENTICE/LINEMAN-ASSISTANT PROFESSOR OF COMMUNICATION Work Phone: [facility] 04-25-2025 08:43-0400 Body mass index (BMI) [Ratio] 34.31 kg/m2 Olafaparna Solano APPRENTICE/LINEMAN-ASSISTANT PROFESSOR OF COMMUNICATION Work Phone: [facility] 04-25-2025 08:43-0400 Body temperature 97.81 [degF] Olaf Solano APPRENTICE/LINEMAN-ASSISTANT PROFESSOR OF COMMUNICATION Work Phone: [facility] 04-25-2025 08:43-0400 Body weight 114.76 kg Olaf Solano APPRENTICE/LINEMAN-ASSISTANT PROFESSOR OF COMMUNICATION Work Phone: [facility] 04-25-2025 08:43-0400 Diastolic blood pressure 78 mm[Hg] Olaf Solano APPRENTICE/LINEMAN-ASSISTANT PROFESSOR OF COMMUNICATION Work Phone: [facility] 04-25-2025 08:43-0400 Heart rate 64 /min Olaf Solano APPRENTICE/LINEMAN-ASSISTANT PROFESSOR OF COMMUNICATION Work Phone: [facility] 04-25-2025 08:43-0400 Respiratory rate 18 /min Olaf Solano APPRENTICE/LINEMAN-ASSISTANT PROFESSOR OF COMMUNICATION Work Phone: [facility] 04-25-2025 08:43-0400 SaO2% (BldA) [Mass fraction] 99 % Olafaparna Solano APPRENTICE/LINEMAN-ASSISTANT PROFESSOR OF COMMUNICATION Work Phone: [facility] 04-25-2025 08:43-0400 Systolic blood pressure 102 mm[Hg] Olaf Xiomara APPRENTICE/LINEMAN-ASSISTANT PROFESSOR OF COMMUNICATION Work Phone: [facility] 09-27-2024 10:34-0500 Body height 182.9 cm Olaf Solano APPRENTICE/LINEMAN-ASSISTANT PROFESSOR OF COMMUNICATION Work Phone: [facility] 09-27-2024 10:34-0500 Body mass index (BMI) [Ratio] 33.88 kg/m2 Olaf Solano APPRENTICE/LINEMAN-ASSISTANT PROFESSOR OF COMMUNICATION Work Phone: [facility] 09-27-2024 10:34-0500 Body temperature 97.9 [degF] Olaf Solano APPRENTICE/LINEMAN-ASSISTANT PROFESSOR OF COMMUNICATION Work Phone: [facility] 09-27-2024 10:34-0500 Body weight 113.31 kg Olaf Solano APPRENTICE/LINEMAN-ASSISTANT PROFESSOR OF COMMUNICATION Work Phone: [facility] 09-27-2024 10:34-0500 Diastolic blood pressure 70 mm[Hg] Olaf Solano APPRENTICE/LINEMAN-ASSISTANT PROFESSOR OF COMMUNICATION Work Phone: [facility] 09-27-2024 10:34-0500 Heart rate 84 /min Olafaparna Solano APPRENTICE/LINEMAN-ASSISTANT PROFESSOR OF COMMUNICATION Work Phone: [facility] 09-27-2024 10:34-0500 Respiratory rate 18 /min Olaf Solano APPRENTICE/LINEMAN-ASSISTANT PROFESSOR OF COMMUNICATION Work Phone: [facility] 09-27-2024 10:34-0500 SaO2% (BldA) [Mass fraction] 94 % Olaf Solano APPRENTICE/LINEMAN-ASSISTANT PROFESSOR OF COMMUNICATION Work Phone: [facility] 09-27-2024 10:34-0500 Systolic blood pressure 110 mm[Hg] Olaf Solano APPRENTICE/LINEMAN-ASSISTANT PROFESSOR OF COMMUNICATION Work Phone: [facility] 08-16-2024 11:20-0500 Body height 182.9 cm Olaf Solano APPRENTICE/LINEMAN-ASSISTANT PROFESSOR OF COMMUNICATION Work Phone: [facility] 08-16-2024 11:20-0500 Body mass index (BMI) [Ratio] 35.72 kg/m2 Olaf Solano APPRENTICE/LINEMAN-ASSISTANT PROFESSOR OF COMMUNICATION Work Phone: [facility] 08-16-2024 11:20-0500 Body temperature 98.2 [degF] Olaf Solano APPRENTICE/LINEMAN-ASSISTANT PROFESSOR OF COMMUNICATION Work Phone: [facility] 08-16-2024 11:20-0500 Body weight 119.48 kg Olaf Solano APPRENTICE/LINEMAN-ASSISTANT PROFESSOR OF COMMUNICATION Work Phone: [facility] 08-16-2024 11:20-0500 Diastolic blood pressure 70 mm[Hg] Olaf Solano APPRENTICE/LINEMAN-ASSISTANT PROFESSOR OF COMMUNICATION Work Phone: [facility] 08-16-2024 11:20-0500 Heart rate 83 /min Olafaparna Solano APPRENTICE/LINEMAN-ASSISTANT PROFESSOR OF COMMUNICATION Work Phone: [facility] 08-16-2024 11:20-0500 Respiratory rate 18 /min Olaf Solano APPRENTICE/LINEMAN-ASSISTANT PROFESSOR OF COMMUNICATION Work Phone: [facility] 08-16-2024 11:20-0500 SaO2% (BldA) [Mass fraction] 98 % Olafaparna Solano APPRENTICE/LINEMAN-ASSISTANT PROFESSOR OF COMMUNICATION Work Phone: [facility] 08-16-2024 11:20-0500 Systolic blood pressure 110 mm[Hg] Olaf Solano APPRENTICE/LINEMAN-ASSISTANT PROFESSOR OF COMMUNICATION Work Phone: [facility] 01-15-2024 16:25-0400 Body height 182.88 cm PHYSICIAN NO [facility] 01-15-2024 16:25-0400 Body mass index (BMI) [Ratio] 34.4 kg/m2 PHYSICIAN NO [facility] 01-15-2024 16:25-0400 Body temperature 98.8 [degF] PHYSICIAN NO [facility] 01-15-2024 16:25-0400 Body weight 115.32 kg PHYSICIAN NO [facility] 01-15-2024 16:25-0400 Heart rate 68 /min PHYSICIAN NO [facility] 01-15-2024 16:25-0400 Respiratory rate 18 /min PHYSICIAN NO [facility] 01-15-2024 16:25-0400 SaO2% (BldA) [Mass fraction] 99 % PHYSICIAN NO [facility] 09-29-2023 08:24-0500 Body height 182.9 cm Olaf Solano APPRENTICE/LINEMAN-ASSISTANT PROFESSOR OF COMMUNICATION Work Phone: [employer] 09-29-2023 08:24-0500 Body mass index (BMI) [Ratio] 33.66 kg/m2 Oalf Solano APRN-ASSISTANT PROFESSOR OF COMMUNICATION Work Phone: [employer] 09-29-2023 08:24-0500 Body temperature 98.6 [degF] Olaf Solano APRN-ASSISTANT PROFESSOR OF COMMUNICATION Work Phone: [employer] 09-29-2023 08:24-0500 Body weight 112.58 kg Olaf Solano APPRENTICE/LINEMAN-ASSISTANT PROFESSOR OF COMMUNICATION Work Phone: [employer] 09-29-2023 08:24-0500 Diastolic blood pressure 70 mm[Hg] Olaf Solano APRN-ASSISTANT PROFESSOR OF COMMUNICATION [facility] 09-29-2023 08:24-0500 Heart rate 74 /min Olaf Solano APRN-ASSISTANT PROFESSOR OF COMMUNICATION Work Phone[facility] 09-29-2023 08:24-0500 SaO2% (BldA) [Mass fraction] 98 % Olaf Solano APRN-ASSISTANT PROFESSOR OF COMMUNICATION Work Phone: [employer] 09-29-2023 08:24-0500 Systolic blood pressure 108 mm[Hg] Olaf Solano APRN-ASSISTANT PROFESSOR OF COMMUNICATION Work Phone: [employer] 07-20-2022 13:00-0500 Body height 182.88 cm Cristin Adame Other [facility] Other 07-20-2022 13:00-0500 Body mass index (BMI) [Ratio] 32.55 kg/m2 Cristin Adame Other [facility] Other 07-20-2022 13:00-0500 Body temperature 100 [degF] Cristin Adame Other [facility] Other 07-20-2022 13:00-0500 Body weight 108.86 kg Cristin Adame Other [facility] Other 07-20-2022 13:00-0500 Respiratory rate 18 /min Cristin Adame Other [facility] Other 07-20-2022 13:00-0500 SaO2% (BldA) [Mass fraction] 97 % Cristin Adame Other [facility] Other 10-25-2021 17:15-0400 Body height 182.88 cm Bere Majano Other [facility] Other 10-25-2021 17:15-0400 Body mass index (BMI) [Ratio] 31.19 kg/m2 Bere Gonzálesault Other [facility] Other 10-25-2021 17:15-0400 Body temperature 100.7 [degF] Bere Gonzálesault Other [facility] Other 10-25-2021 17:15-0400 Body weight 104.33 kg Bere Majano Other [facility] Other 10-25-2021 17:15-0400 SaO2% (BldA) [Mass fraction] 98 % Bere Gonzálesault Other [facility] Other Encounters Encounter Date Encounter Type Care Provider Facility Start: 04-25-2025 End: 04-25-2025 Patient encounter status Olaf Solano APRN-ASSISTANT PROFESSOR OF COMMUNICATION Work Phone: [employer] Work Phone: Start: 04-25-2025 End: 04-25-2025 Periodic preventive med est patient 18-39 yrs Olaf L Xiomara APPRENTICE/LINEMAN-ASSISTANT PROFESSOR OF COMMUNICATION [facility]: [facility] Comment on above: Wellness examination (Primary Dx); Elevated LFTs; Gastroesophageal reflux disease without esophagitis; Sliding hiatal hernia; Chewing tobacco nicotine dependence without complication; Class 1 obesity due to excess calories with serious comorbidity and body mass index (BMI) of 34.0 to 34.9 in adult Start: 04-25-2025 End: 04-25-2025 ambulatory [facility] Start: 04-25-2025 Encounter for camryn l adult medical examination without abnormal findings [facility] Start: 10-21-2024 End: 10-21-2024 Orders Only Olaf Solano APPRENTICE/LINEMAN-ASSISTANT PROFESSOR OF COMMUNICATION Work Phone: [facility] Start: 10-08-2024 End: 10-10-2024 ambulatory [facility] Start: 10-08-2024 End: 10-10-2024 Subsequent hospital visit by physician Mth Mri Scanner [facility] MRI Comment on above: Dilation of common b ile duct Start: 09-30-2024 End: 09-30-2024 Telephone encounter Olaf L Xiomara GARRISONN-ASSISTANT PROFESSOR OF COMMUNICATION Work Phone: [facility] Start: 09-27-2024 End: 09-27-2024 ambulatory [facility] Start: 09-27-2024 End: 09-27-2024 Office outpatient visit 25 minutes Olaf L Xiomara APPRENTICE/LINEMAN-ASSISTANT PROFESSOR OF COMMUNICATION Work Phone: [facility] Comment on above: Elevated LFTs (Prima ry Dx); Gastroesophageal reflux disease without esophagitis; Class 1 obesity due to excess calories without serious comorbidity with body mass index (BMI) of 33.0 to 33.9 in adult; Chewing tobacco nicotine dependence without complication; Globus sensation Start: 09-27-2024 End: 09-27-2024 ambulatory [facility] Start: 09-07-2024 End: 09-10-2024 Refill Olaf Solano APPRENTICE/LINEMAN-ASSISTANT PROFESSOR OF COMMUNICATION Work Phone: [facility] Start: 08-25-2024 End: 08-25-2024 Emergency department patient visit [facility] Start: 08-23-2024 End: 08-23-2024 ambulatory [facility] Start: 08-21-2024 End: 08-25-2024 ambulatory CASSIDY ROGERS [facility] Start: 08-16-2024 End: 08-16-2024 Office outpatient visit 15 minutes Olaf Solano APPRENTICE/LINEMAN-ASSISTANT PROFESSOR OF COMMUNICATION Work Phone: [facility] Comment on above: Gastroesophageal ref lux disease, unspecified whether esophagitis present (Primary Dx); Abnormal liver function Start: 08-16-2024 End: 08-16-2024 ambulatory [facility] Start: 01-15-2024 End: 01-15-2024 ambulatory PHYSICIAN MEAGAN [facility] Work Phone: Start: 01-15-2024 End: 01-15-2024 Patient encounter procedure PHYSICIAN MEAGAN [facility] Work Phone: Start: 09-30-2023 Orders Only Olaf Solano APPRENTICE/LINEMAN-ASSISTANT PROFESSOR OF COMMUNICATION Work Phone: [facility] Comment on above: LFT elevation (Prima ry Dx) Start: 09-29-2023 End: 09-29-2023 Office outpatient visit 15 minutes Olaf Solano APPRENTICE/LINEMAN-ASSISTANT PROFESSOR OF COMMUNICATION Work Phone: [facility] Comment on above: Sliding hiatal herni a (Primary Dx); Chewing tobacco nicotine dependence without complication; Gastroesophageal reflux disease without esophagitis; LFT elevation; Skin tag Start: 08-13-2022 End: 08-13-[address] ANGELA GOMES Facility: Start: 07-20-2022 End: 07-20-2022 ambulatory Cristin Adame Other [facility] Other Start: 07-20-2022 Office outpatient vi sit 25 minutes Cristin Adame [facility] Start: 05-03-2022 End: 05-06-2022 ambulatory ESTELLE FUNK [facility] Start: 05-03-2022 End: 05-05-2022 Subsequent hospital visit by physician Chris [address] Room 2 [facility] Comment on above: Pain of left knee af ter injury; Grade 2 sprain of medial collateral ligament of knee, left, initial encounter Start: 10-25-2021 End: 10-25-2021 ambulatory Bere Majano Other [facility] Other Start: 10-25-2021 Office outpatient ne w 30 minutes Bere Majano [facility] Procedures Date Procedure Procedure Detail Performing Clinician Start: 04-25-2025 Adult depression scr eening assessment Olaf Solano APPRENTICE/[employer]AN[employer]flowControl Work Phone: Start: 10-08-2024 Mri abdomen w/o & w/contrast material Canelo Alvarado DO Work Phone: Start: 09-27-2024 Follow-up visit Follow-up OLAF SOLANO Start: 01-15-2024 Plain X-ray of left hand PHYSICIAN NO FAMILY Start: 09-29-2023 Adult depression scr eening assessment Olaf Solano APPRENTICE/LINEMAN-ASSISTANT PROFESSOR OF COMMUNICATION Work Phone: Start: 05-03-2022 Radiologic examinati on knee 3 views Estelle Funk APPRENTICE/LINEMAN - ASSISTANT PROFESSOR OF COMMUNICATION Work Phone: Plan of Treatment Date Care Activity Detail Author Start: 06-23-2033 DTaP,Tdap and Td Vaccines (9 - Td or Tdap) DTaP,Tdap and Td Vaccines (9 - Td or Tdap) [facility] Start: 06-23-2033 DTaP/Tdap/Td vaccine (2 - Td or Tdap) DTaP/Tdap/Td vaccine (2 - Td or Tdap) [facility] Start: 04-25-2026 Adult BMI Screening Adult BMI Screen ing [facility] Start: 04-25-2026 Depression Screening Depression Scre ening [facility] Start: 04-25-2026 Tobacco Screening Tobacco Screening [facility] Start: 10-24-2025 End: 10-24-2025 Patient encounter procedure 10/24/2025 9:40 AM EDT Office Visit [facility] [address] [place] [address] Olaf Solano, APPRENTICE/LINEMAN-ASSISTANT PROFESSOR OF COMMUNICATION [address] [place] [address] [facility] Start: 09-27-2025 Adult BMI Screening Adult BMI Screen ing [facility] Start: 09-27-2025 Tobacco Screening Tobacco Screening [facility] Start: 08-25-2025 Tobacco Screening Tobacco Screening [facility] Start: 08-16-2025 Adult BMI Screening Adult BMI Screen ing [facility] Start: 08-16-2025 Tobacco Screening Tobacco Screening [facility] Start: 03-28-2025 End: 03-28-2025 Patient encounter procedure 03/28/2025 9:20 AM EDT Office Visit [facility] [address] [place] [address] Olaf Solano, APPRENTICE/LINEMAN-ASSISTANT PROFESSOR OF COMMUNICATION [address] [place] [address] [facility] Start: 09-29-2024 Adult BMI Screening Adult BMI Screen ing [facility] Start: 09-29-2024 Depression Screening Depression Scre ening [facility] Start: 09-29-2024 Tobacco Screening Tobacco Screening [facility] Start: 09-27-2024 End: 09-27-2024 Patient encounter procedure 09/27/2024 10:40 AM EST Office Visit [facility] [address] [place] [address] Olaf Solano, APPRENTICE/LINEMAN-ASSISTANT PROFESSOR OF COMMUNICATION [address] [place] [address] [facility] Start: 08-16-2024 End: 08-16-2025 US Abdomen limited Ultrasound abdomen limited Imaging Routine Abnormal liver function Expected: 08/16/2024, Expires: 08/16/2025 [facility] Work Phone: Comment on above: Expected: 08/16/2024 , Expires: 08/16/2025 Start: 06-03-2024 Adult BMI Follow Up Plan Adult BMI Follow Up Plan [facility] Comment on above: Postponed from 11/12 (Not Indicated) Start: 06-03-2024 Tobacco Counseling Tobacco Counselin g [facility] Comment on above: Postponed from 11/12 (Not Indicated) Start: 05-31-2024 End: 05-31-2024 Patient encounter procedure 05/31/2024 8:40 AM EDT Office Visit [facility] Internal Medicine - Family Medicine [address] [place] [address] Olaf Solano, APPRENTICE/LINEMAN-ASSISTANT PROFESSOR OF COMMUNICATION [address] [place] [address] [facility] Family Medicine Start: 04-14-2024 COVID-19 Vaccine ( season) COVID-19 Vaccine ( season) [facility] Start: 03-14-2024 Influenza vaccination Flu vaccine (# 1) [facility] Start: 09-30-2023 End: 09-30-2024 US Abdomen limited Ultrasound abdomen limited Imaging Routine LFT elevation Expected: 09/30/2023, Expires: 09/30/2024 [facility] Work Phone: Comment on above: Expected: 09/30/2023 , Expires: 09/30/2024 Start: 05-03-2023 Depression Screen Depression Screen [facility] Start: 04-14-2022 Influenza vaccination Flu vaccine (# 1) [facility] Start: 11-13-2015 DTaP/Tdap/Td vaccine (1 - Tdap) DTaP/Tdap/Td vaccine (1 - Tdap) [facility] Start: 11-13-2015 Hepatitis B vaccine (1 of 3 - 19+ 3-dose series) Hepatitis B vaccine (1 of 3 - 19+ 3-dose series) [facility] Start: 2014 Adult BMI Follow Up Plan Adult BMI Follow Up Plan [facility] Start: 2014 Hepatitis C screening Hepatitis C sc reen [facility] Start: 11-13-2011 HIV screening HIV screen [facility] Start: 2009 Varicella vaccine (1 of 2 - 13+ 2-dose series) Varicella vaccine (1 of 2 - 13+ 2-dose series) [facility] Start: 2008 Depression Screen Depression Screen [facility] Start: 11-13-2007 HPV vaccine (1 - Mal e 2-dose series) HPV vaccine (1 - Male 2-dose series) [facility] Start: 1997 Varicella vaccine (1 of 2 - 2-dose childhood series) Varicella vaccine (1 of 2 - 2-dose childhood series) [facility] Start: 05-14-1997 COVID-19 Vaccine (#1) COVID-19 Vacci ne (#1) [facility] Start: 1996 Tobacco Counseling Tobacco Counselin g [facility] End: 09-27-2025 Comprehensive metabolic 2000 panel - Serum or Plasma Comprehensive metabolic panel Lab Routine Elevated LFTs 1 Occurrences starting 09/27/2024 until 09/27/2025 [employer] Work Phone: Comment on above: 1 Occurrences starti ng 09/27/2024 until 09/27/2025 End: 04-25-2026 Comprehensive metabolic 2000 panel - Serum or Plasma Comprehensive metabolic panel Lab Routine Elevated LFTs 1 Occurrences starting 04/25/2025 until 04/25/2026 [employer] Work Phone: Comment on above: 1 Occurrences starti ng 04/25/2025 until 04/25/2026 Comprehensive metabo lic 2000 panel - Serum or Plasma Comprehensive metabolic panel Lab Routine Elevated LFTs 04/25/2025 8:59 AM EDT [employer] End: 04-25-2026 Lipid panel Lipid panel Lab Routine Wellness examination 1 Occurrences starting 04/25/2025 until 04/25/[address] [facility] Comment on above: 1 Occurrences starti ng 04/25/2025 until 04/25/2026 Lipid panel Lipid panel Lab Routine Wellness examination 04/25/2025 8:59 AM EDT [employer] End: 09-27-2025 TSH with Reflex TSH with Reflex Lab Routine Globus sensation 1 Occurrences starting 09/27/2024 until 09/27/2025 [employer] Comment on above: 1 Occurrences starti ng 09/27/2024 until 09/27/2025 XR Hand - left GE 3 Views [facility] Immunizations Immunization Date Immunization Notes Care Provider Fa kevin 06-23-2023 tetanus toxoid, redu jorge luis diphtheria toxoid, and acellular pertussis vaccine, adsorbed Olaf Xiomara APPRENTICE/LINEMAN-ASSISTANT PROFESSOR OF COMMUNICATION Work Phone: [facility] Payers Date Payer Category Payer Self-pay 2021 Jose Manuel [employer] - PPO [employer] [id number] 2021 Unknown JUANCARLOS DE GUZMAN (PPO) [id number] 2021-Present [phone] [address] [place] [address] [id number] 1996 Unknown [id number] .2.173 1996 Unknown [id number] .2.173 1996 Unknown [id number] [id number] .2.1286 1996 Unknown [id number] [id number] .2.1286 1996 Unknown [id number] [id number] .2.1286 1996 Unknown [id number] [id number] .2.173 1996 Unknown [id number] [id number] .2.1286 1996 Unknown [id number] [id number] .2.1286 1996 Unknown [id number] [id number] .2.1286 1978 Unknown [id number] [id number] .2.593 1959 [facility] FNEAN [id number] Unknown [id number] .2.531 Worker's Compensation [id number] Social History Date Type Detail Facility Start: 08-16-2024 End: 04-25-2025 Sex Assigned At [facility] Start: 05-03-2022 End: 05-26-2023 Tobacco smoking status SCIS Never smoked tobacco [employer] Phone: Start: 05-03-2022 Tobacco use and exposure Smokeless tobacco non-user [employer]: Start: 05-03-2022 Alcohol intake Ex-drinker (finding) [employer] Work Phone: Start: 05-03-2022 History SDOH Financial 5 [employer] Phone: Start: 05-03-2022 History SDOH Food Worry 1 [employer] Phone: Start: 1996 Sex Assigned At Not on file B ON [employer] Phone: Start: 1995 Sex Assigned At Male F [facility] Start: 05-26-2023 Tobacco use and exposure User of smokeless tobacco [facility] History of tobacco use Chews Tobacco [facility] Start: 08-16-2024 End: 04-25-2025 Alcoholic beverage intake Lifetime non-drinker (finding) [facility] Start: 08-16-2024 End: 04-25-2025 History of Social function [facility] How hard is it for y ou to pay for the very basics like food, housing, medical care, and heating Not very hard [facility] Adolescent depressio n screening assessment 0 [facility] Start: 03-19-2015 Sex Male (finding) [facility] (I/We) worried wheth er (my/our) food would run out before (I/we) got money to buy more. Never true [facility] [employer] Clinical Notes 10-25-2021 to 04-25-2025 Olaf Solano APRN-ASSISTANT PROFESSOR OF COMMUNICATION - 04/25/2025 8:40 AM EDTTelephone Encounter - [facility] - 09/30/2024 12:07 PM ESTTelephone Encounter - [facility] - 09/30/2024 12:07 PM EST Note Date & Type Note Facility 04-25-2025 History of Presen t illness Narrative [address] [place] [address] Patient: Abrahan Lozano Date of : 1995 Encounter Date: 04/25/2025 History of Present Illness: The patient is a 29 y.o. male, an established patient, and is here for Chief Complaint Patient presents with Wellness . HPI Patient is here for a wellness appointment but is complaining of dull pains that he felt in his left upper abdomen one-week ago that started at night but also occurred during the day. Sometimes eating helped the pain. He also felt like a shock in his head or a lightening bolt and that he may pass out that lasted for 2 weeks and occurred every night. He did start taking his Prilosec twice per day and this helped with the pain in his abdomen and he has not had the shock-like pain in his head for the past 1 week. Before the symptoms occurred, he was weaning off chewing tobacco any cut down by half a can before the symptoms started. He has gone back up with his chewing tobacco to 2 cans per day. Problem List Items Addressed This Visit Respiratory Sliding hiatal hernia Digestive Gastroesophageal reflux disease Other Chewing tobacco nicotine dependence without complication Other Visit Diagnoses Wellness examination - Primary Relevant Orders Lipid panel Elevated LFTs Relevant Orders Comprehensive metabolic panel Class 1 obesity due to excess calories with serious comorbidity and body mass index (BMI) of 34.0 to 34.9 in adult Past Medical, Family, and Social History Update: The following portions of the patient's history were reviewed and updated as appropriate: allergies, current medications, past family history, past medical history, past social history, past surgical history and problem list. Past Medical History: Diagnosis Date GERD (gastroesophageal reflux disease) Past Surgical History: Procedure Laterality Date ESOPHAGOGASTRODUODENOSCOPY DIAGNOSTIC N/A 07/21/2023 Performed by Canelo Alvarado DO at [facility] Current Outpatient Medications Medication Sig Dispense Refill nicotine polacrilex (NICORETTE) 4 MG gum Chew 1 each (4 mg total) as directed as needed for smoking cessation. 100 each 1 omeprazole (PriLOSEC) 20 mg capsule TAKE 2 CAPSULES (40 MG) BY MOUTH IN THE MORNING (Patient not taking: Reported on 04/25/2025) 180 capsule 1 No current facility-administered medications for this visit. (All medications reviewed and updated by provider since last office visit or hospitalization) Allergies: Patient has no known allergies. Tobacco History: Social History Tobacco Use Smoking Status Never Smokeless Tobacco Current Types: Chew (If patient a smoker, smoking cessation counseling offered) Social History: Social History Substance and Sexual Activity Alcohol Use Never Review of Systems: Review of Systems Constitutional: Negative for activity change, appetite change, chills, fever and unexpected weight change. HENT: Positive for congestion. Negative for ear pain and sore throat. Eyes: Negative for pain and visual disturbance. Respiratory: Negative for cough and shortness of breath. Cardiovascular: Negative for chest pain and palpitations. Gastrointestinal: Positive for abdominal pain. Negative for abdominal distention, anal bleeding, blood in stool, constipation, diarrhea, nausea and vomiting. Genitourinary: Negative for dysuria and hematuria. Musculoskeletal: Negative for arthralgias and back pain. Skin: Negative for color change and rash. Allergic/Immunologic: Positive for environmental allergies. Neurological: Negative for seizures and syncope. Psychiatric/Behavioral: Negative. All other systems reviewed and are negative. Physical Exam: BP 102/78 (BP Site: Left Arm, BP Postition: Sitting, BP CUFF SIZE: M (9-13 inches)) Pulse 64 Temp 36.6 C (97.8 F) (Tympanic) Resp 18 Ht 182.9 cm (6' 0.01 ) Wt 114.8 kg (253 lb) SpO2 99% BMI 34.31 kg/m Physical Exam Vitals reviewed. Constitutional: Appearance: Normal appearance. He is obese. HENT: Head: Normocephalic and atraumatic. Right Ear: Tympanic membrane, ear canal and external ear normal. Left Ear: Tympanic membrane, ear canal and external ear normal. Nose: Congestion present. Mouth/Throat: Mouth: Mucous membranes are moist. Eyes: Pupils: Pupils are equal, round, and reactive to light. Neck: Thyroid: No thyroid mass, thyromegaly or thyroid tenderness. Cardiovascular: Rate and Rhythm: Normal rate and regular rhythm. Heart sounds: Normal heart sounds. Pulmonary: Effort: Pulmonary effort is normal. Breath sounds: Normal breath sounds. Abdominal: General: Bowel sounds are normal. Palpations: Abdomen is soft. Tenderness: There is abdominal tenderness (tenderness to RUQ and LUQ). Musculoskeletal: Right lower leg: No edema. Left lower leg: No edema. Lymphadenopathy: Cervical: No cervical adenopathy. Skin: General: Skin is warm. Capillary Refill: Capillary refill takes less than 2 seconds. Neurological: General: No focal deficit present. Mental Status: He is alert and oriented to person, place, and time. Psychiatric: Mood and Affect: Mood normal. Behavior: Behavior normal. Assessment and Plan: Abrahan was seen today for wellness. Diagnoses and all orders for this visit: Wellness examination - Lipid panel; Future - Lipid panel Elevated LFTs - Comprehensive metabolic panel; Future - Comprehensive metabolic panel Gastroesophageal reflux disease without esophagitis Sliding hiatal hernia Chewing tobacco nicotine dependence without complication Class 1 obesity due to excess calories with serious comorbidity and body mass index (BMI) of 34.0 to 34.9 in adult Follow-up: Health maintenance and immunizations were discussed and recommendations were made. Depression screening was neg today. We will check his liver function enzymes. MRCP from [facility] was reviewed with patient with normal common bile duct and normal liver last year. His last EGD was reviewed from 2022. Patient should take his PPI for at least the next 2 weeks consistently and follow his anti-reflux precautions. Some of his symptoms were likely due to nicotine withdrawal. He was advised to slowly wean off the nicotine using the gum and possibly [id number] nicotine patches. Patient understands the harmful effects of tobacco nicotine. Patient noted to have elevated BMI and the following intervention(s) were applied: encouragement to exercise and prescribed diet education. We will continue to check his LFTs every 6 months while elevated. He had negative hepatitis screen in past and negative imaging with MRI in September. He went to Dermatology last year for full body skin check and skin tag removal. If he continues to have the abdominal pain despite 2 weeks on the PPI and anti-reflux precautions he should return to the office sooner than 6 months. NARCISO HESTER APRN-CNP 04/25/25 0934 documented in this encounter [employer] 09-30-2024 Miscellaneous Notes Formattin g of this note might be different from the original. ----- Message from NARCISO Horner sent at 09/27/2024 12:23 PM EST ----- Please set up f/u in 6 mo for wellness/CMP re-check 40 min Let him know I spoke with Issac about his abnormal US - will see what his LFTs are if they continue to trend down and no abdominal pain, we can hold off on consultation or further imaging, if trend up then still recommend MRCP. Sent mychart msg documented in this encounter [facility] 09-30-2024 Telephone encount er Note ----- Message from NARCISO Horner sent at 09/27/2024 12:23 PM EST ----- Please set up f/u in 6 mo for wellness/CMP re-check 40 min Let him know I spoke with Issac about his abnormal US - will see what his LFTs are if they continue to trend down and no abdominal pain, we can hold off on consultation or further imaging, if trend up then still recommend MRCP. [facility] 09-30-2024 Telephone encount er Note Sent mychart msg [facility] 09-27-2024 History of Presen t illness Narrative [address] [place] [address] Patient: Abrahan Lozano Date of : 1995 Encounter Date: 09/27/2024 History of Present Illness: The patient is a 28 y.o. male, an established patient, and is here for Chief Complaint Patient presents with Follow-up stomach . HPI Patient has follow up today to recheck his GERD symptoms that happened ongoing since 2022. He went to the ER August 12 with pain in his chest. EKG and chest x-ray and cardiac workup was negative and GI cocktail did work for his pain so his pain was thought to be related to his GERD. After last visit a month ago, patient was advised to take his PPI and Carafate for the next 1 month and lose weight and stopped chewing tobacco. Patient has lost 14 lb since last visit and the chest pain has resolved but the pressure in his throat is still present though much better. He knows more of his trigger foods now such as high fat were spicy foods or eating too much in 1 setting and he tries to avoid this. He stopped drinking pop in his only drinking water and he feels like this has helped greatly with his symptoms. He has been off the PPI and Carafate for about a week now and his symptoms have not returned like they were previous to therapy. Patient has history of EGD in July of 2023 showing mild antral gastritis and small hiatal hernia. He opted to proceed with medical management instead of seeing surgeon. He continues to chew tobacco. Incidental finding of mildly prominent common bile duct on ultrasound was discussed with patient. Ultrasound of liver was performed due to elevated LFTs. Patient had normal bilirubin in August. Patient denies any alcohol consumption. Problem List Items Addressed This Visit Digestive Gastroesophageal reflux disease Other Chewing tobacco nicotine dependence without complication Other Visit Diagnoses Elevated LFTs - Primary Relevant Orders Comprehensive metabolic panel Class 1 obesity due to excess calories without serious comorbidity with body mass index (BMI) of 33.0 to 33.9 in adult Globus sensation Relevant Orders TSH with Reflex Past Medical, Family, and Social History Update: The following portions of the patient's history were reviewed and updated as appropriate: allergies, current medications, past family history, past medical history, past social history, past surgical history and problem list. Past Medical History: Diagnosis Date GERD (gastroesophageal reflux disease) Past Surgical History: Procedure Laterality Date ESOPHAGOGASTRODUODENOSCOPY DIAGNOSTIC N/A 07/21/2023 Performed by Canelo Alvarado DO at [facility] Current Outpatient Medications Medication Sig Dispense Refill omeprazole (PriLOSEC) 20 mg capsule TAKE 2 CAPSULES (40 MG) BY MOUTH IN THE MORNING 180 capsule 1 ondansetron ODT (ZOFRAN ODT) 4 mg disintegrating tablet (Patient not taking: Reported on 09/27/2024) No current facility-administered medications for this visit. (All medications reviewed and updated by provider since last office visit or hospitalization) Allergies: Patient has no known allergies. Tobacco History: Social History Tobacco Use Smoking Status Never Smokeless Tobacco Current Types: Chew (If patient a smoker, smoking cessation counseling offered) Social History: Social History Substance and Sexual Activity Alcohol Use Never Review of Systems: Review of Systems Constitutional: Positive for unexpected weight change (14 lb weight loss in 1 month with cutting portions and cutting out soda). Negative for activity change and appetite change. HENT: Negative. Respiratory: Negative. Cardiovascular: Negative. Gastrointestinal: Negative for abdominal distention, abdominal pain, blood in stool, constipation, diarrhea, nausea and vomiting. Globus sensation continues though improvement in the last month Neurological: Negative. Psychiatric/Behavioral: Negative. Physical Exam: BP 110/70 (BP Site: Right Arm, BP Postition: Sitting) Pulse 84 Temp 36.6 C (97.9 F) (Oral) Resp 18 Ht 182.9 cm (6') Wt 113.3 kg (249 lb 12.8 oz) SpO2 94% BMI 33.88 kg/m Physical Exam Vitals reviewed. Constitutional: Appearance: Normal appearance. He is obese. HENT: Head: Normocephalic and atraumatic. Cardiovascular: Rate and Rhythm: Normal rate and regular rhythm. Heart sounds: Normal heart sounds. Pulmonary: Effort: Pulmonary effort is normal. Breath sounds: Normal breath sounds. Skin: Capillary Refill: Capillary refill takes less than 2 seconds. Neurological: General: No focal deficit present. Mental Status: He is alert and oriented to person, place, and time. Psychiatric: Mood and Affect: Mood normal. Behavior: Behavior normal. Assessment and Plan: Abrahan was seen today for follow-up. Diagnoses and all orders for this visit: Elevated LFTs - Comprehensive metabolic panel; Future Gastroesophageal reflux disease without esophagitis Class 1 obesity due to excess calories without serious comorbidity with body mass index (BMI) of 33.0 to 33.9 in adult Chewing tobacco nicotine dependence without complication Globus sensation - TSH with Reflex; Future Follow-up: ALT elevation, liver US showed no steatosis liver but mildly prominent CBD. José Antonio normal. Recommended he have MRCP for further investigation. Pt would prefer to have no invasive or further testing for this. Opted to re-check LFTs. If continue to trend up would still recommend MRCP vs. GI consultation if continue to trend down and no further pain we can watch LFTs every 6 mo. Discussion/Collaborated this plan with Dr. Alvarado for abnormal imaging. For GERD pt advised to continue to use anti-reflux precautions and congratulated on losing weight and too keep up until goal BMI <25% reached. He was advised to cut out chewing tobacco. Use PPI on PRN basis. Check TFTs due to continued globus sensation in neck which is likely related to GERD but check TSH. RTO for wellness in next 6 mo. Consultation and review of imaging with physician with 4 chronic problems reviewed. NARCISO HESTER APRN-CNP 09/27/24 1224 documented in this encounter [facility] [employer] 08-16-2024 History of Presen t illness Narrative [address] [place] [address] Patient: Abrahan Lozano Date of : 1995 Encounter Date: 08/16/2024 History of Present Illness: The patient is a 28 y.o. male, an established patient, and is here for Chief Complaint Patient presents with GI Problem . HPI Patient is here for an ER follow-up. Two weeks ago he experienced a pinching in his left anterior chest which progressively became worse and radiated to his left upper quadrant abdomen so he went to the ER last Monday. His EKG and lab work and chest x-ray were unremarkable from the ER he was given a GI cocktail which improved his symptoms so his symptoms were thought to be related to his chronic GERD. One week ago he started close anti-reflux precautions, avoiding pop and drinking more water, and was attempting to lose weight with a 5 lb weight loss. Last night he went to [employer] for his anniversary and went off of his anti-reflux precautions and drank soda and he had significant worsening of his symptoms in his left upper quadrant and chest area. He also had dyspepsia symptoms and loose stools. This did improve when he took his Pepcid and Zofran that was given to him in the ER. He did not finish his Carafate from the ER. Patient denies any dark or black stools or vomiting. Problem List Items Addressed This Visit Digestive Gastroesophageal reflux disease - Primary Relevant Medications sucralfate (CARAFATE) 1 gram tablet Other Visit Diagnoses Abnormal liver function Relevant Orders Ultrasound abdomen limited Past Medical, Family, and Social History Update: The following portions of the patient's history were reviewed and updated as appropriate: allergies, current medications, past family history, past medical history, past social history, past surgical history and problem list. Past Medical History: Diagnosis Date GERD (gastroesophageal reflux disease) Past Surgical History: Procedure Laterality Date ESOPHAGOGASTRODUODENOSCOPY DIAGNOSTIC N/A 07/21/2023 Performed by Canelo Alvarado DO at [facility] Current Outpatient Medications Medication Sig Dispense Refill famotidine (PEPCID) 20 mg tablet Take 1 tablet (20 mg total) by mouth in the morning and 1 tablet (20 mg total) before bedtime. 60 tablet 1 ondansetron ODT (ZOFRAN ODT) 4 mg disintegrating tablet sucralfate (CARAFATE) 1 gram tablet omeprazole (PriLOSEC) 20 mg capsule Take 2 capsules (40 mg total) by mouth in the morning. 60 capsule 0 No current facility-administered medications for this visit. (All medications reviewed and updated by provider since last office visit or hospitalization) Allergies: Patient has no known allergies. Tobacco History: Social History Tobacco Use Smoking Status Never Smokeless Tobacco Current Types: Chew (If patient a smoker, smoking cessation counseling offered) Social History: Social History Substance and Sexual Activity Alcohol Use Never Review of Systems: Review of Systems Constitutional: Positive for unexpected weight change (5 lb weight loss). Negative for activity change and appetite change. HENT: Negative. Respiratory: Negative. Cardiovascular: Negative. Gastrointestinal: Positive for abdominal distention, abdominal pain, diarrhea and nausea. Negative for blood in stool, constipation and vomiting. Neurological: Negative. Physical Exam: BP 110/70 (BP Site: Left Arm, BP Postition: Sitting) Pulse 83 Temp 36.8 C (98.2 F) (Oral) Resp 18 Ht 182.9 cm (6') Wt 119.5 kg (263 lb 6.4 oz) SpO2 98% BMI 35.72 kg/m Physical Exam Vitals reviewed. Constitutional: Appearance: Normal appearance. He is obese. HENT: Head: Normocephalic and atraumatic. Mouth/Throat: Mouth: Mucous membranes are moist. Cardiovascular: Rate and Rhythm: Normal rate and regular rhythm. Heart sounds: Normal heart sounds. Pulmonary: Effort: Pulmonary effort is normal. Breath sounds: Normal breath sounds. Abdominal: General: There is no distension. Palpations: There is no mass. Tenderness: There is abdominal tenderness (Epigastric, left upper quadrant, right upper quadrant). There is guarding. There is no right CVA tenderness or left CVA tenderness. Hernia: No hernia is present. Musculoskeletal: Right lower leg: No edema. Left lower leg: No edema. Skin: General: Skin is warm. Capillary Refill: Capillary refill takes less than 2 seconds. Neurological: General: No focal deficit present. Mental Status: He is alert and oriented to person, place, and time. Psychiatric: Mood and Affect: Mood normal. Behavior: Behavior normal. Assessment and Plan: Abrahan was seen today for gi problem. Diagnoses and all orders for this visit: Gastroesophageal reflux disease, unspecified whether esophagitis present Abnormal liver function - Ultrasound abdomen limited; Future Other orders - omeprazole (PriLOSEC) 20 mg capsule; Take 2 capsules (40 mg total) by mouth in the morning. Follow-up: Patient was advised to return to his anti-reflux precautions,. Soda intake,. Any NSAID use, take 40 mg Prilosec as above for the next 1 month and finish his Carafate bottle as given in the ER. He may go back to his Pepcid as needed when he is finished with his Prilosec. He was congratulated on his weight loss and encouraged to lose more weight to help with his symptoms. Patient also understands that any nicotine products including chewing tobacco can make his problem more so he is advised to stop. We will get liver ultrasound due to increase in his liver function tests and he was advised to avoid excessive amounts of Tylenol and alcohol. Patient states he does not drink alcohol. Follow-up in 1 month for above problems and recheck of LFTs. NARCISO HESTER APRN-CNP 08/16/24 1250 documented in this encounter [employer] 09-29-2023 History of Presen t illness Narrative [place] [address] Patient: Abrahan Lozano Date of : 1995 Encounter Date: 09/29/2023 History of Present Illness: The patient is a 27 y.o. male, an established patient, and is here for Chief Complaint Patient presents with Follow-up 3 month lft s . HPI Patient is here for a recheck of his liver function tests as they were high in May. His GERD symptoms have improved and he no longer has a choking and globus sensation when he swallows. He was doing a keto diet and avoiding drinking pop for a while but he has stopped this- he had lost some weight but has gained some back. He does not drink alcohol but he still chews tobacco. Patient still has large skin tag on his back and he did not follow-up with Dermatology because they did not reach out to him. Problem List Items Addressed This Visit Respiratory Sliding hiatal hernia - Primary Digestive Gastroesophageal reflux disease Other Chewing tobacco nicotine dependence without complication Other Visit Diagnoses LFT elevation Relevant Orders Comprehensive metabolic panel (Completed) Skin tag Relevant Orders Ambulatory referral to Dermatology (Non[facility]) Past Medical, Family, and Social History Update: The following portions of the patient's history were reviewed and updated as appropriate: allergies, current medications, past family history, past medical history, past social history, past surgical history and problem list. History reviewed. No pertinent past medical history. Past Surgical History: Procedure Laterality Date ESOPHAGOGASTRODUODENOSCOPY DIAGNOSTIC N/A 07/21/2023 Performed by Canelo Alvarado DO at [facility] Current Outpatient Medications Medication Sig Dispense Refill famotidine (PEPCID) 20 mg tablet Take 1 tablet (20 mg total) by mouth in the morning and 1 tablet (20 mg total) before bedtime. (Patient not taking: Reported on 09/29/2023) 60 tablet 1 No current facility-administered medications for this visit. (All medications reviewed and updated by provider since last office visit or hospitalization) Allergies: Patient has no known allergies. Tobacco History: Social History Tobacco Use Smoking Status Never Smokeless Tobacco Current Types: Chew (If patient a smoker, smoking cessation counseling offered) Social History: Social History Substance and Sexual Activity Alcohol Use Never Review of Systems: Review of Systems Constitutional: Positive for unexpected weight change. Negative for fatigue. HENT: Negative. Respiratory: Negative. Cardiovascular: Negative. Gastrointestinal: Negative. Musculoskeletal: Negative. Skin: Skin tag Neurological: Negative. Psychiatric/Behavioral: Negative. Physical Exam: BP 108/70 (BP Site: Left Arm, BP Postition: Sitting) Pulse 74 Temp 37 C (98.6 F) (Oral) Ht 182.9 cm (6') Wt 112.6 kg (248 lb 3.2 oz) SpO2 98% BMI 33.66 kg/m Physical Exam Vitals reviewed. Constitutional: Appearance: Normal appearance. He is obese. HENT: Head: Normocephalic and atraumatic. Mouth/Throat: Mouth: Mucous membranes are moist. Eyes: Pupils: Pupils are equal, round, and reactive to light. Neck: Thyroid: No thyroid mass, thyromegaly or thyroid tenderness. Cardiovascular: Rate and Rhythm: Normal rate and regular rhythm. Heart sounds: Normal heart sounds. Pulmonary: Effort: Pulmonary effort is normal. Breath sounds: Normal breath sounds. Abdominal: General: Bowel sounds are normal. There is no distension. Palpations: Abdomen is soft. There is no mass. Tenderness: There is no abdominal tenderness. There is no guarding or rebound. Musculoskeletal: Cervical back: Normal range of motion. Right lower leg: No edema. Left lower leg: No edema. Lymphadenopathy: Cervical: No cervical adenopathy. Skin: General: Skin is warm. Capillary Refill: Capillary refill takes less than 2 seconds. Neurological: General: No focal deficit present. Mental Status: He is alert and oriented to person, place, and time. Psychiatric: Mood and Affect: Mood normal. Behavior: Behavior normal. Thought Content: Thought content normal. Judgment: Judgment normal. Assessment and Plan: Abrahan was seen today for follow-up. Diagnoses and all orders for this visit: Sliding hiatal hernia Chewing tobacco nicotine dependence without complication Gastroesophageal reflux disease without esophagitis LFT elevation - Comprehensive metabolic panel; Future Skin tag - Ambulatory referral to Dermatology ([facility]); Future Follow-up: He can use the Pepcid now on an as-needed basis. He should try to follow his anti-reflux diet and cut down and eventually quit the chewing tobacco. He understands negative health risks associated with chewing tobacco. Recheck CMP today, if liver function enzymes are still elevated would recommend liver ultrasound. Hepatitis panel was negative. 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 Follow-up at some point before the end of the year for his wellness appointment. NARCISO HESTER APRN-CNP 10/02/23 6384 documented in this encounter [facility] [employer] 07-20-2022 Evaluation note Encounter Date Diagnosis Assessment Notes Jul, Contact with and (suspected) exposure to other viral communicable diseases (ICD-10 - Z20.828) Jul, Nausea and vomiting, unspecified vomiting type (ICD-10 - R11.2) Nausea and vomiting: adult material was printed Drink plenty fluids, get plenty of rest. Take Zofran as prescribed for nausea and vomiting. Take Tylenol or Motrin for aches pains or fevers. Off work today and tomorrow. Follow-up with your family physician if no improvement in 2 to 3 days. Go to the ER if unable to tolerate oral fluids. [facility] Other 03-14-2022 Evaluation note* Encounter Date Diagnosis Assessment Notes Treatment Notes Treatment Clinical Notes Oct, Fever (ICD-10 - R50.9) Oct, Influenza A (ICD-10 - J10.1) Take medication as directed. Do not take over the counter cough, cold or flu medications with prescription cough syrup. Antibiotics will not help treat the flu. Symptoms should improvement over next 4-7 days. Follow up with primary care provider if no improvement of symptoms past treatment period. [facility] Other Evaluation note* Diagnosis Pain of left knee after injury Grade 2 sprain of medial collateral ligament of knee, left, initial encounter documented in this encounter [facility] Work Phone: evaluation noteNo assessment information available [facility] Work Phone: Evaluation note* Diagnosis Onset Date Resolution Status Left hand pain acute [facility] Work Phone: Evaluation note* Diagnosis Gastroesophageal reflux disease, unspecified whether esophagitis present- Primary Abnormal liver function Unspecified disorder of liver documented in this encounter [facility] Elevated LFTs- Primary Other abnormal blood chemistry Gastroesophageal reflux disease without esophagitis Esophageal reflux Class 1 obesity due to excess calories without serious comorbidity with body mass index (BMI) of 33.0 to 33.9 in adult Chewing tobacco nicotine dependence without complication Globus sensation Gastrointestinal malfunction arising from mental factors [facility] Diagnosis Sliding hiatal hernia- Primary Diaphragmatic hernia without mention of obstruction or gangrene Chewing tobacco nicotine dependence without complication Gastroesophageal reflux disease without esophagitis Esophageal reflux LFT elevation Skin tag Unspecified hypertrophic and atrophic condition of skin [facility] Diagnosis LFT elevation- Primary [facility] Diagnosis Dilation of common bile duct [facility] Diagnosis Wellness examination- Primary Elevated LFTs Other abnormal blood chemistry Gastroesophageal reflux disease without esophagitis Esophageal reflux Sliding hiatal hernia Diaphragmatic hernia without mention of obstruction or gangrene Chewing tobacco nicotine dependence without complication Class 1 obesity due to excess calories with serious comorbidity and body mass index (BMI) of 34.0 to 34.9 in adult [facility] Attachments The following attachments cannot be sent through Care Everywhere. * Acid reflux and gastroesophageal reflux disease in adults (Barbadian) [facility]ructionsNot on file documented in [facility] encounter[facility] SystemInstructionsNot on file documented in [facility]* Attachments The following attachments cannot be sent through Care Everywhere. * Nonalcoholic Fatty Liver Disease Discharge Instructions (Barbadian) documented [facility] System[facility]ructionsNot on file documented in this encounterOhio[facility] SystemInstructionsNot on file documented in [facility]* Attachments The following attachments cannot be sent through Care Everywhere. * Acid reflux and GERD in adults (Barbadian) * Nicotine, ADULT (Barbadian) documented in [facility] SystemReason for referral (narrative)* Consultation (Routine) - Pending Review Specialty Diagnoses / Procedures Referred By Contac t Referred To Contact Dermatology Diagnoses Skin tag Olaf Solano, APPRENTICE/LINEMAN-ASSISTANT PROFESSOR OF COMMUNICATION [address] [place] [address] Rudy Herrera, DO [address] [address] Referral ID Status Reason Start Date Expiration Date Visits Requested Visits Authorized [id number] Pending Review Specialty Services Required 09/29/2023 09/28/2024 1 1 [facility] Summary Purpose Family History No Family History Records FoundNo Family History Records FoundNo Family History Records FoundNo Family History Records FoundNo Family History Records FoundNo Family History Records FoundNo Family History Records FoundNo Family History Records Found Advance Directives No Advanced Directives Records Found Advance Directive Response Recorded Date/ Time Advance Directives No January 14 4:18pm Chief Complaint and Reason for Visit Chief Complaint left hand wound chec k (arjun, worried infected) Chief Complaint left hand wound chec k (arjun, worried infected) Reason for Visit Left hand pain Reason for Referral Specialty Diagnoses / Procedures Referred By Jazmyn warren Referred To Contact Radiology Diagnoses Dilation of common bile duct Procedures MRI ABDOMEN W WO CONTRAST MRCP Canelo Alvarado, DO [address] [place] [address] Referral ID Status Reason Start Date Expiration Date Visits Re quested Visits Authorized [id number] Closed 10/01/2024 10/01/2025 1 1 Additional Source Comments (unrecognized sect ion and content) No Status Records FoundNo Status Records FoundNo Status Records FoundNo Status Records FoundNo Status Records FoundNo Status Records FoundNo Status Records FoundNo Status Records Found INFORMATION SOURCE (unrecogn ized section and content) DATE CREATED AUTHOR 03/13/2020 [facility] DATE CREATED AUTHOR AUTHOR'S ORGANIZ ATION 05/15/2022 [facility] DATE CREATED AUTHOR AUTHOR'S ORGANIZ ATION 08/16/2022 [facility] DATE CREATED AUTHOR AUTHOR'S ORGANIZ ATION 01/27/2024 [facility] DATE CREATED AUTHOR AUTHOR'S ORGANIZ ATION 08/27/2024 [facility] DATE CREATED AUTHOR AUTHOR'S ORGANIZ ATION 09/29/2024 [place] DATE CREATED AUTHOR AUTHOR'S ORGANIZ ATION 10/11/2024 [facility] DATE CREATED AUTHOR AUTHOR'S ORGANIZ ATION 04/27/2025 [facility] REASON FOR VISIT (unrecogniz ed section and content) Reason Comments GI Problem Reason Comments Med Change Request Reason Comments Follow-up stomach Reason Comments Follow-up 3 month lft s Specialty Diagnoses / Procedures Referred By Jazmyn t Referred To Contact Radiology Diagnoses Dilation of common bile duct Procedures MRI ABDOMEN W WO CONTRAST MRCP Canelo Alvarado, DO [address] [place] [address] Referral ID Status Reason Start Date Expiration Date Visits Re quested Visits Authorized [id number] Closed 10/01/2024 10/01/2025 1 1 Reason Comments Wellness Care Teams (unrecognized sec tion and content) Pomology Teacher Relationship Specialty Start Date End Date Estelle Funk, APPRENTICE/LINEMAN - ASSISTANT PROFESSOR OF COMMUNICATION [address] [place] [address] PCP - General Certified Nurse Practitioner 05/03/22 Pomology Teacher Relationship Specialty Start Date End Date Estelle Funk APPRENTICE/LINEMAN - ASSISTANT PROFESSOR OF COMMUNICATION [address] [place] [address] PCP - General Certified Nurse Practitioner 05/03/22 Team Status: Active Member Role Status Dates PHYSICIAN NO FAMILY Primary Care Provider Active Team Status: Inactive Member Role Status Dates PHYSICIAN NO FAMILY Primary Care Provider Active Start: January 15, 2024 End: January 15, 2024 Fabiana Garcia APRN Attending Provider Active Start: January 15, 2024 End: January 15, 2024 Team Status: Active Member Role Status Dates PHYSICIAN NO FAMILY Primary Care Provider Active Start: January 15, 2024 Fabiana Garcia APRN Attending Provider Active Start: January 15, 2024 Pomology Teacher Relationship Specialty Start Date End Date Olaf Solano APRN-CNP [address] [place] [address] PCP - General Internal Medicine 05/26/23 Pomology Teacher Relationship Specialty Start Date End Date Olaf Solano APRN-CNP [address] [place] [address] PCP - General Internal Medicine 05/26/23 Pomology Teacher Relationship Specialty Start Date End Date Carlos Solanoiana Kera [facility] [address] [place] [address] PCP - General Internal Medicine 05/26/23 Pomology Teacher Relationship Specialty Start Date End Date XiomaraCarlosOlafaparna Cote [facility] [address] [place] [address] PCP - General Internal Medicine 05/26/23 Pomology Teacher Relationship Specialty Start Date End Date Olaf Solano [facility] [address] [place] [address] PCP - General Internal Medicine 05/26/23 Pomology Teacher Relationship Specialty Start Date End Date Estelle Funk APPRENTICE/[facility] [address] [place] [address] PCP - General Certified Nurse Practitioner 05/03/22 Pomology Teacher Relationship Specialty Start Date End Date XiomaraCarlosOlafaparna Cote [facility] [address] [place] [address] PCP - General Internal Medicine 05/26/23 Pomology Teacher Relationship Specialty Start Date End Date Olaf Solano [facility] [address] [place] [address] PCP - General Internal Medicine 05/26/23 Goals (unrecognized section and content) Goals may be documented in a n alternate section FOR RECORDS PERTAINING TO PATIENTS WHO ARE OR HAVE BEEN ENROLLED IN A CHEMICAL DEPENDENCY/SUBSTANCEABUSE PROGRAM, SOME INFORMATION MAY BE OMITTED. This clinical summary was aggregated from multiple sources. Caution should be exercised in using it in the provision of clinical care. This summary normalizes information from multiple sources, and as a consequence, information in this document may materially change the coding, format and clinical context of patient data. In addition, data may be omitted in some cases. CLINICAL DECISIONS SHOULD BE BASED ON THE PRIMARY CLINICAL RECORDS. [facility]. provides no warranty or guarantee of the accuracy or completeness of information in this document.
--- NOTE | 2025-05-01 18:29 | XR_ITS ---
[facility] [place] [id number] Patient Name: GUS LOVE MRN: [id number] date: 1995 Sex: M Assigned Patient Location: ER Current Patient Location: ER Accession/Order Number: [id number] Exam Date: 05/01/2025 19:00 Report Date: 05/01/2025 19:24 At the request of: BRIGIDA JUAREZ Procedure: XR lumbar spine 2-3V XR lumbar spine 2-3V 05/01/2025 7:07 PM SIGNS AND SYMPTOMS: Acute low back pain PROTOCOLS: Frontal and lateral radiographs of the lumbar spine COMPARISON: None FINDINGS: The alignment, development and bony structures are normal. There is no fracture or destructive lesion. There is mild disc height loss at L5-S1.. The sacrum and sacroiliac joints are normal. XR/XR lumbar spine 2-3V IMPRESSION: Mild disc height loss is noted at L5-S1. Impression dictated by: Giovani Morgan M.D. 05/01/2025 7:24 PM Dictation Location: [place] [address] Electronically authenticated by: [id number] Date: 05/01/2025 19:24
[2025-05-01] MEDS: LIDOCAINE 5% PATCH 1 PATCH TOPICAL (18:38)
[2025-05-01] MEDS: ACETAMINOPHEN 500 MG TABLET 1000 MG PO (18:38)
[2025-05-01] MEDS: CYCLOBENZAPRINE HCL 10 MG TABLET PO (18:39)
--- NOTE | 2025-05-01 19:23 | ED_ITS ---
HPI HPI - General Adult General Chief complaint: Back Pain/Injury Stated complaint: BACK PAIN Time Seen by Provider: 05/01/25 18:29 Source: patient Mode of arrival: Wheelchair Limitations: no limitations History of Present Illness HPI narrative: Patient is a 29-year-old male that presents to the emergency department with complaints of midline low back pain after he was bending over and stood back up and experienced extreme low back pain. He states the pain was so bad that he walked back to the house but was in so much pain it was hard to remember. He denies any bowel or bladder incontinence. He denies any lower extremity weakness, numbness, or tingling. He did not take any medication. He was unable to get up off the couch after the incident without help. Related Data Previous Rx's ?Medication ?Instructions ?Recorded famotidine 20 mg tablet (Pepcid) 20 mg PO BID 30 days #60 tabs 08/09/24 ondansetron 4 mg disintegrating 4 mg PO Q6H PRN nausea and 08/09/24 tablet vomiting #12 tabs sucralfate 1 gram tablet (Carafate) 1 g PO Q6H PRN abd ominal pain #12 08/09/24 tabs cyclobenzaprine 5 mg tablet 5 mg PO BID PRN muscle spa sm #14 05/01/25 tabs hydrocodone 5 mg-acetaminophen 325 1 tab PO Q6H PRN pa in #5 tabs 05/01/25 mg tablet lidocaine 5 % topical patch 1 patch topical DAILY #15 ea 05/01/25 (Lidoderm) Allergies Allergy/AdvReac Type Severity Reaction Status Date / Time No Known Drug Allergies Allergy Verified 05/01/25 16:30 Opioid HPI Opioid Management Most Recent Opioid Data: Last Pain Scale 10 Today, 18:38 Last MAR Pain Assessment Today, 18:38 Review of Systems ROS Status of ROS 10 or more systems reviewed and unremark able except as noted in history and below PFSH PFSH Social History Little interest or pleasure in doing things: not at all Feeling down, depressed, or hopeless: not at all Exam Narrative Exam Narrative: General: No distress, age-appropriate Skin: Warm, dry, no pallor. No rash. Head: Normocephalic, atraumatic. Neck: Supple, non-tender. Eye: Pupils are equal, round and EOMI. No scleral icterus. Ears, Nose, Mouth, and Throat: No nasal mucosal hypertrophy. Oral mucosa is moist, no posterior oropharynx erythema, uvula is mid-line Cardiovascular: Regular Rate and Rhythm without murmur, gallop or rub. Respiratory: No accessory muscle use or respiratory distress. Lungs are clear to auscultation, no wheezing, rales or rhonchi Chest Wall: no tenderness Back: No midline thoracic or lumbar vertebral tenderness, left paraspinal muscular tenderness. Musculoskeletal: Full ROM of all extremities 5/5 bilateral lower extremity strength, no calf or popliteal tenderness GI: Abdomen is soft, non-distended, non tender to palpation. No masses appreciated. No rebound, guarding, or rigidity noted. Neurological: A&O x4. No cranial nerve dysfunction observed. No truncal ataxia. Moves all extremities. Sensation intact. Psychiatric: Cooperative and interactive. Normal mood and affect. Constitutional Vital Signs, click to edit/add: Last Vital Signs Temp 98.6 F 05/01/25 16:30 Pulse 87 05/01/25 16:30 Resp 18 05/01/25 16:30 BP 144/95 H 05/01/25 16:30 Pulse Ox 99 05/01/25 16:30 O2 Del Method Room Air 05/01/25 16:30 Documenting provider has reviewed patient's vital signs: yes Course Vital Signs Vital signs: Vital Signs Temperature 98.6 F 05/01/25 16:30 Pulse Rate 87 05/01/25 16:30 Respiratory Rate 18 05/01/25 16:30 Blood Pressure 144/95 H 05/01/25 16:30 Pulse Oximetry 99 05/01/25 16:30 Oxygen Delivery Method Room Air 05/01/25 16:30 Temperature 98.6 F 05/01/25 16:30 Pulse Rate 87 05/01/25 16:30 Respiratory Rate 18 05/01/25 16:30 Blood Pressure 144/95 H 05/01/25 16:30 Pulse Oximetry 99 05/01/25 16:30 Oxygen Delivery Method Room Air 05/01/25 16:30 Medical Decision Making MDM Narrative Medical decision making narrative: This is a 29-year-old male that presented to the emergency department with mid to left-sided low back pain after he was working and bent over and came back up with extreme pain. He was ambulatory after this but in extreme pain. He did not take any medications prior to arrival here. He denies any bowel or bladder incontinence/retention, leg weakness or numbness/tingling to the lower extremities. Patient laying on ED cart, appears uncomfortable. Had to roll on exam sitting up because more back pain. Vital stable on arrival. I discussed x-ray and multimodal pain control with him. His family has a history of substance abuse and he declined narcotic pain medication initially. I started with 500 mg Tylenol, lidocaine patch, and Flexeril 5 mg. This initially helped the pain but it started to return after this on reevaluation. His x-ray was negative for fracture, there was some degeneration of the disc at L5-S1. Given the mechanism of injury, clinical presentation, and imaging findings, the pain is most consistent with mechanical low back pain likely due to degenerative disc disease at L5-S1 exacerbated by recent activity. He was observed in the emergency department with no changes in neurological exam and was observed ambulating with steady gait to the bathroom. He did then ask for stronger pain medication and I am going to give him a [place] 5 mg. We did discuss activity modification, multimodal pain control with medication, and going to give him a few [place] 5 mg for breakthrough pain but we did discuss taking Tylenol, Flexeril, and the Lidoderm patch first. Patient was discharged with plan to follow-up with his primary care provider in a few days to a week. He was advised to return to the emergency department with any new or worsening symptoms, including bowel or bladder incontinence/retention, leg weakness or numbness/tingling. Differential Diagnosis Differential Diagnosis: Lumbar compression fracture, lumbar strain, disc herniation Lab Data Lab results reviewed: Yes I reviewed the patient's lab results Imaging Data X-ray Lumbar Spine: Attestation: I have reviewed the pertinent imaging results. Radiologist's impression: ITS Impressions Lumbar Spine X-Ray 05/01/25 18:29 IMPRESSION: Mild disc height loss is noted at L5-S1. Impression dictated by: Giovani Morgan M.D. 05/01/2025 7:24 PM Dictation Location: [place] [address] Electronically authenticated by: [id number] Y Date: 05/01/2025 19:24 Discharge Plan Discharge Chief Complaint: Back Pain/Injury Clinical Impression: Low back pain Patient Disposition: Home, Self-Care Time of Disposition Decision: 20:01 Condition: Good Mode of Transportation: Private Vehicle Prescriptions / Home Meds: New hydrocodone-acetaminophen 5-325 mg tablet 1 tab PO Q6H PRN (Reason: pain) Qty: 5 0RF cyclobenzaprine 5 mg tablet 5 mg PO BID PRN (Reason: muscle spasm) Qty: 14 0RF lidocaine [Lidoderm] 5 % adhesive patch,medicated 1 patch topical DAILY Qty: 15 0RF Rx Instructions: leave on most painful area for up to 12 hrs No Action sucralfate [Carafate] 1 gram tablet 1 g PO Q6H PRN (Reason: abdominal pain) Qty: 12 0RF ondansetron 4 mg tablet,disintegrating 4 mg PO Q6H PRN (Reason: nausea and vomiting) Qty: 12 0RF famotidine [Pepcid] 20 mg tablet 20 mg PO BID 30 Days Qty: 60 0RF Print Language: Portuguese Instructions: Acute Low Back Pain (ED) Additional Instructions: You were seen today for low back pain. Based on your evaluation, there are no signs of serious injury or nerve damage (such as weakness, loss of bladder control, or numbness in the groin). Your pain appears to be caused by muscle strain, ligament sprain, or mild inflammation, which is common and usually improves over time. Take Tylenol 500mg as directed on the box for pain, use lidocaine patch, muscle relaxer (Flexeril), and pain medication ([place]) as ne eded for breakthrough pain. Activity * Stay active as tolerated. Avoid prolonged bed rest ? movement helps recovery. * You may return to work or light activities as pain allows. * Avoid heavy lifting, twisting, or bending for a few days. Return to the ER or Call a Doctor If You Experience: * New numbness, tingling, or weakness in one or both legs * Loss of bladder or bowel control * Pain that is sudden, severe, or getting worse * Fever, chills, or unexplained weight loss * History of cancer, IV drug use, or recent infection with worsening pain Follow-Up: * Follow up with your primary care provider or a physical therapist within 1 week. * If pain persists longer than 4?6 weeks, imaging or specialist referral (e.g., orthopedics, pain management) may be needed. Referrals: OLAF SOLANO [Primary Care Provider, Unknown] - 1 week Angel Zarco DO [Physician] - As needed Referral Note: [phone] [place] [id number] Discharge Date/Time: 05/01/25 20:50
[2025-05-01] MEDS: HYDROCODONE/ACET 5-325 MG TABLET 1 TAB PO (20:48)
== END 2025-05-01 20:50 | disposition home or self-care (01) ==
PROVIDERS: Emergency Provider Emergency Medicine; PCP Nurse Practitioner Family
DX: M54.50 Low back pain, unspecified (principal); M51.379 Other intervertebral disc degeneration, lumbosacral region without mention of lumbar back pain or lower extremity pain
CPT/HCPCS: 72100; 99283